=== PATIENT | female | born 1935 | race Caucasian/White ===

== ENCOUNTER 2016-12-25 21:25 | Emergency (ER) | payer MEDICARE, OTHER ==
[~2016-12-25] VITALS: Ht 152.4 cm; Wt 78.5 kg
[~2016-12-25 21:25] MED LIST: ACET325T9 PO; AMLO10TA2 PO; AMLO1CAP12 PO; ARIP5TAB13 PO; CA C1TAB28 PO; CALC600T4 PO; CHOL10003 PO; CIPR250T30 PO; DULO60CA44 PO; EZET10TA18 PO; GABA-585 PO; GLYB5TAB3 PO; HYDR-2762 PO; LEXAPRO10 MG PO; LIDO700A4 TP; LISI10TA2 PO; MAGN400O7 PO; METO50TA2 PO; MIRT15TA PO; OLAN2.5T11 PO; OLAN5TAB7 PO; POTA20TA4 PO; SIMV40TA3 PO; VILA40TA PO; VITA1CAP PO; [UNRECOGNIZED DRUG - REMARK] PO
[2016-12-25] MEDS ORDERED: MORPHINE SULFATE 4 MG/ML DISP.SYRIN. IV ONE (23:00)
[2016-12-26 00:18] LABS: BASO % 0 % (0-3); EOS # 0.1 x10^3/uL (0.0-0.7); EOS % 2 % (0-3); HEMATOCRIT 34.9 % (36.0-47.0); HEMOGLOBIN 11.2 g/dL (12.0-15.5); LYMPH # 0.9 x10^3/uL (1.0-4.8); LYMPH % 14 % (24-48); MEAN CORPUSCULAR HEMOGLOBIN 31 pg (25-35); MEAN CORPUSCULAR HGB CONC 32 g/dL (31-37); MEAN CORPUSCULAR VOLUME 96 fL (79-100); MONO # 0.4 x10^3/uL (0.0-1.1); MONO % 6 % (0-9); NEUT # 5.2 x10^3uL (1.8-7.7); NEUT % 79 % (31-73); PLATELET COUNT 213 x10^3/uL (140-400); RED BLOOD COUNT 3.66 x10^6/uL (3.50-5.40); RED CELL DISTRIBUTION WIDTH 15.8 % (11.5-14.5); WHITE BLOOD COUNT 6.6 x10^3/uL (4.0-11.0)
[2016-12-26 00:20] LABS: CALCIUM 8.7 mg/dL (8.5-10.1); CREATININE 1.2 mg/dL (0.6-1.0); GFR 43.4
--- NOTE | 2016-12-26 00:45 | PHYS DOC ---
Past History Past Medical History: Dementia, Diabetes, High Cholesterol, Hypertension, Other Past Surgical History: Other Smoking: Non-smoker Alcohol Use: None Drug Use: None Adult General Chief Complaint Chief Complaint: MECHANICAL FALL HPI HPI Patient is a 80 year old F who presents trip and fall at home. After the fall she developed constant dull right hip pain that is worse with movement and improved with positioning. She also hit the left side of her head causing a small contusion. She denies loss of consciousness, headache, nausea or blurry vision. She denies any other symptoms associated with head injury. She has no other associated symptoms. Mily did receive 100 g of fentanyl given by EMS during transport just prior to arrival. Review of Systems Review of Systems Constitutional: Denies fever or chills [] Eyes: Denies change in visual acuity, redness, or eye pain [] HENT: Denies nasal congestion or sore throat [] Respiratory: Denies cough or shortness of breath [] Cardiovascular: No additional information not addressed in HPI [] GI: Denies abdominal pain, nausea, vomiting, bloody stools or diarrhea [] : Denies dysuria or hematuria [] Musculoskeletal: Negative except history of present illness Integument: Denies rash or skin lesions [] Neurologic: Denies headache, focal weakness or sensory changes [] Endocrine: Denies polyuria or polydipsia [] Family History Family History Noncontributory Current Medications Current Medications Current Medications Medications (Trade) Dose Ordered Sig/Cara Start Time Stop Time Status Last Admin Dose Admin Morphine Sulfate (Morphine 4mg Syringe) 4 mg 1X ONCE 12/25/16 23:00 12/25/16 23:01 DC 12/25/16 23:00 4 MG Allergies Allergies Allergies Coded Allergies Type Severity Reaction Last Updated Verified Sulfa (Sulfonamide Antibiotics) Allergy Intermediate 07/09/13 Yes Physical Exam Physical Exam Constitutional: Well developed, well nourished, no acute distress, non-toxic appearance. [] HENT: Normocephalic, bilateral external ears normal, oropharynx moist, no oral exudates, nose normal. [] Contusion over the left forehead Eyes: PERRLA, EOMI, conjunctiva normal, no discharge. [] Neck: Normal range of motion, no tenderness, supple, no stridor. [] Cardiovascular:Heart rate regular rhythm, Lungs & Thorax: Bilateral breath sounds clear to auscultation [] Abdomen: Bowel sounds normal, soft, no tenderness, no masses, no pulsatile masses. [] Skin: Warm, dry, no erythema, no rash. [] Back: No tenderness, no CVA tenderness. [] Extremities: no cyanosis, no edema. [] Right leg shortening with external rotation. Range of motion and strength testing were limited due to pain. Normal blood flow in the foot as well as the rest of the lower extremity. Normal sensation. Neurologic: Alert and oriented X 3, normal motor function, normal sensory function, no focal deficits noted. [] Psychologic: Affect normal, judgement normal, mood normal. [] Current Patient Data Vital Signs Vital Signs Date Time Temp Pulse Resp B/P (MAP) Pulse Ox O2 Delivery O2 Flow Rate FiO2 12/25/16 23:43 66 20 97/49 (65) 98 Nasal Cannula 3.0 12/25/16 21:43 97.7 Lab Results Laboratory Tests Test 12/25/16 21:30 White Blood Count 6.6 x10^3/uL (4.0-11.0) Red Blood Count 3.66 x10^6/uL (3.50-5.40) Hemoglobin 11.2 g/dL (12.0-15.5) L Hematocrit 34.9 % (36.0-47.0) L Mean Corpuscular Volume 96 fL (79-100) Mean Corpuscular Hemoglobin 31 pg (25-35) Mean Corpuscular Hemoglobin Concent 32 g/dL (31-37) Red Cell Distribution Width 15.8 % (11.5-14.5) H Platelet Count 213 x10^3/uL (140-400) Neutrophils (%) (Auto) 79 % (31-73) H Lymphocytes (%) (Auto) 14 % (24-48) L Monocytes (%) (Auto) 6 % (0-9) Eosinophils (%) (Auto) 2 % (0-3) Basophils (%) (Auto) 0 % (0-3) Neutrophils # (Auto) 5.2 x10^3uL (1.8-7.7) Lymphocytes # (Auto) 0.9 x10^3/uL (1.0-4.8) L Monocytes # (Auto) 0.4 x10^3/uL (0.0-1.1) Eosinophils # (Auto) 0.1 x10^3/uL (0.0-0.7) Basophils # (Auto) 0.0 x10^3/uL (0.0-0.2) Sodium Level 141 mmol/L (136-145) Potassium Level 4.0 mmol/L (3.5-5.1) Chloride Level 106 mmol/L (98-107) Carbon Dioxide Level 26 mmol/L (21-32) Anion Gap 9 (6-14) Blood Urea Nitrogen 21 mg/dL (7-20) H Creatinine 1.2 mg/dL (0.6-1.0) H Estimated GFR (Cockcroft-Gault) 43.4 Glucose Level 151 mg/dL (70-99) H Calcium Level 8.7 mg/dL (8.5-10.1) EKG EKG [] Radiology/Procedures Radiology/Procedures Right hip and pelvis Impressions: Right femur fracture with mild displacement Course & Med Decision Making Course & Med Decision Making Pertinent Labs and Imaging studies reviewed. (See chart for details) Orthopedics was contacted by phone and recommended transfer to [place] for further management. Hospitalist was contacted by phone and Mily's care was accepted. She was transferred in stable condition. Dragon Disclaimer Dragon Disclaimer This chart was dictated in whole or in part using Voice Recognition software in a busy, high-work load, and often noisy Emergency Department environment. It may contain unintended and wholly unrecognized errors or omissions. Departure Departure: Impression: Primary Impression: Closed right hip fracture Disposition: 05 XFER OTHER Condition: STABLE Referrals: BETH VEGA DO (PCP) Problem Qualifiers Primary Impression: Closed right hip fracture Encounter type: initial encounter Qualified Codes: S72.001A - Fracture of unspecified part of neck of right femur, initial encounter for closed fracture XIANG ALVAREZ MD Dec 26, 2016 00:45
[2016-12-26 01:11] VITALS: BP 94/46
[2016-12-26] MEDS ORDERED: MORPHINE SULFATE 4 MG/ML DISP.SYRIN. IV ONE (01:15)
[2016-12-26] MEDS ORDERED: IV NORMAL SALINE 1,000ML 1,000 ML IV ONE (01:15)
--- NOTE | 2016-12-26 08:14 | RAD ---
Examination: 2 views of the right hip with frontal view of the pelvis History: History of fall Comparison: None available Findings/impression: The bilateral femoral heads are within the scapula. Osseous demineralization limits evaluation. There is displaced comminuted fracture of the intertrochanteric region of the right femur with the fracture extending to involve the proximal femur. There is questionable slight step-off of the right superior pubic ramus at its junction with the acetabulum which could be due to position or subtle nondisplaced fracture.
== END 2016-12-26 01:21 | disposition short-term general hospital (02) ==
LOC: ER 21:25
DX: S72.001A Fracture of unspecified part of neck of right femur, initial encounter for closed fracture (principal); S00.83XA Contusion of other part of head, initial encounter; I10 Essential (primary) hypertension; F03.90 Unspecified dementia, unspecified severity, without behavioral disturbance, psychotic disturbance, mood disturbance, and anxiety; E78.00 Pure hypercholesterolemia, unspecified; E11.9 Type 2 diabetes mellitus without complications; Z88.2 Allergy status to sulfonamides; W01.0XXA Fall on same level from slipping, tripping and stumbling without subsequent striking against object, initial encounter; Y93.89 Activity, other specified; Y99.8 Other external cause status; Y92.008 Other place in unspecified non-institutional (private) residence as the place of occurrence of the external cause
CPT/HCPCS: 36415; 73502; 80048; 85025; 96374; 96376; 99285; J2270; J7030

== ENCOUNTER 2019-06-23 17:27 | Observation (INO) | payer MEDICARE, OTHER ==
[~2019-06-23] VITALS: Ht 157.5 cm; Wt 66.0 kg
[~2019-06-23 17:27] MED LIST changes: -AMLO10TA2 PO; +AMLO10TA8 PO; -AMLO1CAP12 PO; +AMLO1CAP13 PO; -DULO60CA44 PO; +DULO60CA98 PO; -EZET10TA18 PO; +EZET10TA20 PO; -HYDR-2762 PO; +HYDR-2765 PO; -METO50TA2 PO; +METO50TA6 PO; +SIMV40TA18 PO; -SIMV40TA3 PO
--- NOTE | 2019-06-23 17:54 | PHYS DOC ---
Past History Past Medical History: Dementia, Diabetes, High Cholesterol, Hypertension, Other (XIANG DAVIDSON DO) Past Medical History: COPD, Hypertension (JOE RUVALCABA DO) Past Surgical History: Other (XIANG DAVIDSON DO) Smoking: Non-smoker Alcohol Use: None Drug Use: None (XIANG DAVIDSON DO) General Adult EDM: Chief Complaint: CHEST PAIN HPI: HPI: Patient is a 89-year-old female who presented to ER today for evaluation of chest pain associated with nausea, vomiting, having trouble breathing for 4 days. Patient denies any cough or fever. Patient denies any abdominal pain, no headache. Patient denies any history of coronary disease, no history of diabetes. Patient has history of hypertension. Beside that she cannot tell much about her medical history. (XIANG DAVIDSON DO) Review of Systems: Review of Systems: Constitutional: Denies fever or chills Eyes: Denies change in visual acuity HENT: Denies nasal congestion or sore throat Respiratory: Denies cough or shortness of breath Cardiovascular: Positive for chest pain and shortness of air, GI: Denies abdominal pain, Positive for nausea, vomiting, NO bloody stools or diarrhea : Denies dysuria Musculoskeletal: Denies back pain or joint pain Integument: Denies rash Neurologic: Denies headache, focal weakness or sensory changes Endocrine: Denies polyuria or polydipsia Lymphatic: Denies swollen glands Psychiatric: Denies depression or anxiety (XIANG DAVIDSON DO) Heart Score: HEART Score for Chest Pain: HEART Score for Chest Pain Response (Comments) Value History Moderately Suspicious 1 ECG Nonspecific Repolarizatio 1 Age > 65 2 Risk Factors 1 or 2 Risk Factors 1 Troponin < Normal Limit 0 Total 5 Risk Factors: Risk Factors: DM, Current or recent (<one month) smoker, HTN, HLP, family history of CAD, obesity. Risk Scores: Score 0 - 3: 2.5% MACE over next 6 weeks - Discharge Home Score 4 - 6: 20.3% MACE over next 6 weeks - Admit for Clinical Observation Score 7 - 10: 72.7% MACE over next 6 weeks - Early Invasive Strategies (XIANG DAVIDSON DO) Allergies: Allergies: Allergies Coded Allergies Type Severity Reaction Last Updated Verified Sulfa (Sulfonamide Antibiotics) Allergy Intermediate 07/09/13 Yes (XIANG DAVIDSON DO) Physical Exam: PE: Constitutional: Well developed, well nourished, no acute distress, non-toxic appearance. [] HENT: Normocephalic, atraumatic, bilateral external ears normal, oropharynx moist, no oral exudates, nose normal. [] Eyes: PERRLA, EOMI, conjunctiva normal, no discharge. [] Neck: Normal range of motion, no tenderness, supple, no stridor. [] Cardiovascular:Heart rate regular rhythm, no murmur [] Lungs & Thorax: DECREASE AIR MOVEMENT IN ALL LUNG FIELD,TACHYPNIC, NO RESPIRATORY DISTRESS, NO EDEMA Abdomen: Bowel sounds normal, soft, no tenderness, no masses, no pulsatile masses. [] Skin: Warm, dry, no erythema, no rash. [] Back: No tenderness, no CVA tenderness. [] Extremities: No tenderness, no cyanosis, no clubbing, ROM intact, no edema. [] Neurologic: Alert and oriented X 3, normal motor function, normal sensory function, no focal deficits noted. [] Psychologic: Affect normal, judgement normal, mood normal. [] (XIANG DAVIDSON DO) EKG: EKG: EKG was done at 1735, heart rate of 69 bpm, sinus rhythm, no ST segment elevation. [] (XIANG DAVIDSON DO) EKG: EKG: Normal sinus rhythm, rate 90, leftward axis, not STEMI, LVH (JOE RUVALCABA DO) Radiology/Procedures: Radiology/Procedures: [] (XIANG DAVIDSON DO) Radiology/Procedures: [address] [address] IMAGING REPORT Signed [facility]: [id number] : 1935 LOCATION: ER AGE: 83 SEX: F EXAM STATUS: REG ER ORD. PHYSICIAN: XIANG DAVIDSON DO REASON: chest pain PROCEDURE: PORTABLE CHEST 1V Exam: Chest one view INDICATION: Chest pain TECHNIQUE: Frontal view of the chest Comparisons: 10/15/2013 FINDINGS: The cardiomediastinal silhouette and pulmonary vessels are within normal limits. The lung and pleural spaces are clear. IMPRESSION: No acute cardiopulmonary process. Electronically signed by: Tripp Vogel MD (06/23/2019 5:59 PM) [id number] DICTATED AND SIGNED BY: TRIPP VOGEL MD DATE: 06/23/191758 CC: BETH VEGA DO; XIANG DAVIDSON DO ~ (JOE RUVALCABA DO) Course & Med Decision Making: Course & Med Decision Making Pertinent Labs and Imaging studies reviewed. (See chart for details) Patient is an 83-year-old female who was evaluated in ER due to chest pain, trouble breathing, nausea and vomiting. Patient's care being transferred over to Dr. Ruvalcaba at shift change, pending lab work and x-ray. (XIANG DAVIDSON DO) Course & Med Decision Making 1800 Care of pt assumed by me at shift change 1829 patient reassessed. She has diminished but equal breath sounds bilaterally. I ordered a metered-dose inhaler treatment as well as dose of steroids. Patient has mild to moderate conversational dyspnea. Labs are unremarkable except for a low magnesium. CBC is essentially normal as is her troponin. Patient will need admission to the hospital. 1839 Dr. Penny is the admitting Hospitalist. Will admit with diagnosis of COPD exacerbation and chest pain (JOE RUVALCABA DO) Dragon Disclaimer: Dragon Disclaimer: This electronic medical record was generated, in whole or in part, using a voice recognition dictation system. (XIANG DAVIDSON DO) Departure Departure: Impression: Primary Impression: COPD with exacerbation Additional Impressions: Chest pain Dyspnea Disposition: ADMITTED INPATIENT Admitting Physician: eLnny Penny (JOE RUVALCABA DO) Condition: STABLE Referrals: BETH VEGA DO (PCP) XIANG DAVIDSON DO June 23, 2019 17:54 JOE RUVALCABA DO June 23, 2019 18:06
--- NOTE | 2019-06-23 18:02 | RAD ---
Exam: Chest one view INDICATION: Chest pain TECHNIQUE: Frontal view of the chest Comparisons: 10/15/2013 FINDINGS: The cardiomediastinal silhouette and pulmonary vessels are within normal limits. The lung and pleural spaces are clear. IMPRESSION: No acute cardiopulmonary process. Electronically signed by: Tripp Gomez MD (06/23/2019 5:59 PM) [id number]
[2019-06-23 18:10] LABS: BASO % 0 % (0-3); EOS % 1 % (0-3); HEMATOCRIT 41.6 % (36.0-47.0); HEMOGLOBIN 13.7 g/dL (12.0-15.5); LYMPH # 1.2 x10^3/uL (1.0-4.8); LYMPH % 24 % (24-48); MEAN CORPUSCULAR HEMOGLOBIN 31 pg (25-35); MEAN CORPUSCULAR HGB CONC 33 g/dL (31-37); MEAN CORPUSCULAR VOLUME 94 fL (79-100); MONO # 0.4 x10^3/uL (0.0-1.1); MONO % 9 % (0-9); NEUT # 3.4 x10^3uL (1.8-7.7); NEUT % 67 % (31-73); PLATELET COUNT 224 x10^3/uL (140-400); RED BLOOD COUNT 4.44 x10^6/uL (3.50-5.40); RED CELL DISTRIBUTION WIDTH 15.2 % (11.5-14.5); WHITE BLOOD COUNT 5.1 x10^3/uL (4.0-11.0)
[2019-06-23 18:19] LABS: CALCIUM 9.6 mg/dL (8.5-10.1); CREATININE 0.8 mg/dL (0.6-1.0); GFR 68.8
[2019-06-23 18:31] LABS: ALBUMIN/GLOBULIN RATIO 1.1 (1.0-1.7); TOTAL BILIRUBIN 0.6 mg/dL (0.2-1.0); TOTAL PROTEIN 7.5 g/dL (6.4-8.2)
[2019-06-23] MEDS ORDERED: ALBUTEROL SULFATE 8GM INHALER. INH ONE (18:45)
[2019-06-23] MEDS ORDERED: methylPREDNISolone SOD SUCC PF 125 MG/2 ML VIAL. IV ONE (18:45)
[2019-06-23] MEDS ORDERED: ONDANSETRON PF 4 MG/2 ML VIAL. IVP PRN (19:00)
--- NOTE | 2019-06-23 20:27 | PREOP HP ---
DATE OF SERVICE: ATTENDING PHYSICIAN: Dr. Tao CHIEF COMPLAINT: Shortness of breath. HISTORY OF PRESENT ILLNESS: The patient is a very pleasant 83-year-old female from a local [facility]. She was sent to the ED with increasing shortness of breath. She was actively wheezing. She received a nebulizer treatment. She has had symptoms now for 4 days. She denied any cough, headaches. She has no history of heart disease, but she does have hypertension and COPD. She has underlying dementia. Much of the history is obtained from the chart. In the ED, she responded well to supplemental oxygen and breathing treatment. Chest x-ray demonstrated no acute infiltrates. Lab work showed a normal white count of 5100, normal electrolytes. She is admitted then with an exacerbation of known COPD. PAST MEDICAL HISTORY: Significant for profound dementia, hyperlipidemia, type 2 diabetes, hypertension and COPD. ALLERGIES: She has allergies to SULFA DRUGS, exact cause is unclear. FAMILY HISTORY: Unobtainable. REVIEW OF SYSTEMS: Unobtainable due to the current mental condition. CURRENT MEDICINES: Her medications from the [facility] reviewed. She takes Neurontin 300 mg 3 times a day, Remeron, Viibryd, Abilify, Seroquel, calcium, potassium, Lidoderm patch, vitamin B complex, cholecalciferol and p.r.n. Tylenol. She is also taking lisinopril, amlodipine and metoprolol. PHYSICAL EXAMINATION: GENERAL: When I saw her, this is a very pleasant elderly female. She was dyspneic with minimal exertion. She denied any nausea or pain. INITIAL VITAL SIGNS: In the ED showed a blood pressure of 157/71, her pulse is 77 and regular, temperature 97.9, oxygen saturation 94% on 2 liters of supplemental oxygen. HEENT: Head is without trauma. Pupils are reactive. Sclerae nonicteric. The oropharynx is clear. NECK: Supple, no bruits identified. LUNGS: Good air sounds, very noticeable wheezing in the upper airways. She sounds tight. CARDIOVASCULAR: Showed regular heart tones. No gallops. Peripheral pulses are palpable and full. ABDOMEN: Soft, obese, protuberant. No organomegaly. EXTREMITIES: Showed no cyanosis or edema. NEUROLOGIC: Focally intact. Speech is fluent. She is pleasantly confused. PERTINENT LABORATORY STUDIES: The hemoglobin is 13.7 g/dL with a white count of 5100. Electrolytes within normal range with a creatinine of 0.8 mg/dL. Her troponin levels are nonischemic. Her chest x-ray showed a fairly good view. The lung majano are free of infiltrates. The heart size is upper limits of normal. ASSESSMENT: 1. An 83-year-old female, [facility] resident with an exacerbation of chronic obstructive pulmonary disease. 2. Essential hypertension. 3. Profound dementia. PLAN: 1. Admit to the inpatient unit. 2. I ordered scheduled nebulizers and steroid therapy. 3. Continue some home meds. 4. Diet as tolerated. She is a DNR per advanced directives. We will respect her wishes. TONYA TAO MD DR: JOAQUINA/antelmo JOB#: [id number] / [id number]
--- NOTE | 2019-06-23 20:30 | NUR ---
The patient, KATHY HICKS, 83 y/o, F admitted by TONYA TAO MD, was given written information regarding hospital policies, unit procedures and contact persons. Valuables were checked and logged. Patient is short of air, on oxygen. Shortness of breath at rest. Pt denies pain. WCTM.
[2019-06-23 20:49] VITALS: BP 176/71
[2019-06-23] MEDS ORDERED: ARIPiprazole 5 MG TABLET PO SCH (21:00)
[2019-06-23] MEDS ORDERED: MIRTAZAPINE 15 MG TABLET PO SCH (21:00)
[2019-06-23] MEDS ORDERED: METOPROLOL TART IMMED RELEASE 50 MG TABLET PO SCH (21:00)
[2019-06-23 21:09] LABS: BACTERIA,URINE FEW /HPF (0-FEW); BILIRUBIN,URINE NEG (NEG); CLARITY,URINE CLEAR; COLOR,URINE YELLOW; GLUCOSE,URINE NEG (NEG); NITRITE,URINE NEG (NEG); SQUAMOUS EPITHELIAL CELL,UR MOD /LPF
--- NOTE | 2019-06-23 21:12 | NUR ---
ATTEMPT TO CALL AND VERIFY MEDICATION LIST WITH [facility]. RECORDING STATING [facility] IS CLOSED. WILL HAVE TO CALL AND VERIFY IN AM.
[2019-06-23] MEDS ORDERED: CARB1TAB22 PO (21:46)
[2019-06-23] MEDS ORDERED: AMLO5TAB10 PO (21:46)
[2019-06-23] MEDS ORDERED: ATOR40TA59 PO (21:46)
[2019-06-23] MEDS ORDERED: CITA20TA6 PO (21:46)
[2019-06-23] MEDS ORDERED: ROPI0.5T4 PO (21:48)
--- NOTE | 2019-06-23 21:51 | NUR ---
Called Placed to Patient's Amparo Campbell/ daughter (general hardware salesperson). Home medication list received. Call to Dr. Penny, medications reviewed, orders received for some home medications per Dr. Penny's orders.
[2019-06-23] MEDS ORDERED: ATORVASTATIN CALCIUM 20 MG TABLET PO SCH (22:30)
[2019-06-23 22:54] VITALS: BP 159/61
[2019-06-24 05:32] VITALS: BP 158/67
[2019-06-24] MEDS ORDERED: amLODIPine BESYLATE 10 MG TABLET PO SCH (09:00)
[2019-06-24] MEDS ORDERED: CARBIDOPA/LEVODOPA 25/100MG TABLET PO SCH (09:00)
[2019-06-24] MEDS ORDERED: rOPINIRole 0.5 MG TABLET. PO SCH (09:00)
[2019-06-24] MEDS ORDERED: VITAMIN B COMPLEX CAPSULE. PO SCH (09:00)
[2019-06-24] MEDS ORDERED: LISINOPRIL 10 MG TABLET PO SCH (09:00)
[2019-06-24] MEDS ORDERED: POTASSIUM CHLORIDE 20 MEQ TABLET.ER. PO SCH (09:00)
[2019-06-24] MEDS ORDERED: methylPREDNISolone SOD SUCC PF 40 MG/ML VIAL. IV SCH (09:00)
[2019-06-24] MEDS ORDERED: CITALOPRAM 20 MG TABLET. PO SCH (09:00)
--- NOTE | 2019-06-24 09:39 | PN ---
DATE: 06/24/2019 ATTENDING PHYSICIAN: Tonya Tao MD SUBJECTIVE: She has a nonspecific headache. Her breathing appears better. She was appropriate to answer questions. OBJECTIVE FINDINGS: VITAL SIGNS: Her temperature is 98.3 degrees Fahrenheit, her blood pressure is 158/67, pulse 73 and regular, oxygen saturation 97% on 2 liters nasal cannula. HEENT: Head is without trauma. Pupils are reactive. Sclerae are nonicteric. Oropharynx clear. NECK: Supple. LUNGS: Minimal wheezing in the upper airways. CARDIOVASCULAR: Showed distant heart tones. No gallops. She has multiple trigger points along her spinous muscles on her neck and back. ABDOMEN: Soft. EXTREMITIES: Without cyanosis or edema. NEUROLOGIC: Findings focally intact. Speech is fluent. Mildly confused. LABORATORY DATA: Chest x-ray yesterday showed no acute infiltrates. ASSESSMENT: 1. An 83-year-old female with exacerbation of chronic obstructive pulmonary disease. 2. Essential hypertension. 3. Profound dementia. 4. Musculoskeletal tension headache. 5. Oxygen dependency. PLAN: 1. I will try to wean her off of supplemental oxygen and see what her room air saturations are at. 2. Continue steroid. 3. Continue nebulizer. 4. I am trying to contact her daughter and the power of disability attorney. Hopefully, discharge back to the shelter [facility]. TONYA TAO MD DR: JOAQUINA/antelmo JOB#: [id number] / [id number]
[2019-06-24 11:45] VITALS: BP 158/70
--- NOTE | 2019-06-24 11:50 | EKG ---
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
--- NOTE | 2019-06-24 14:08 | NUR ---
Patient is discharged home with daughter. Patient is given a prescription for prednisone 20mg TID, and a wheelchair. IV is D/C'd. Patient has all belongings with self at time of D/C. Patient is W/C'd off of unit accompanied by staff.
== END 2019-06-24 14:36 | disposition home or self-care (01) ==
LOC: ER 17:27 → 1 SOUTH 18:45
PROVIDERS: ADMIT Hospitalist; ATTEND Hospitalist
DX: J44.1 Chronic obstructive pulmonary disease with (acute) exacerbation (principal); I10 Essential (primary) hypertension; F03.90 Unspecified dementia, unspecified severity, without behavioral disturbance, psychotic disturbance, mood disturbance, and anxiety; E78.5 Hyperlipidemia, unspecified; E11.9 Type 2 diabetes mellitus without complications; E78.00 Pure hypercholesterolemia, unspecified; Z79.899 Other long term (current) drug therapy
CPT/HCPCS: 36415; 71045; 80053; 81001; 82947; 83690; 83735; 83880; 84484; 85025; 85610; 85730; 93005; 96374; 96375; 96376; 99285; G0378; J2405; J2920; J2930; J7613; G0379

== ENCOUNTER 2019-07-05 11:45 | Inpatient (IN) | payer MEDICARE, OTHER ==
[2019-07-05] VITALS (10 sets, daily range): BP systolic 106–128; BP diastolic 62–93
[~2019-07-05] VITALS: Ht 152.4 cm; Wt 68.1 kg
[~2019-07-05 11:45] MED LIST changes: +AMLO5TAB10 PO; +ATOR40TA59 PO; +CARB1TAB22 PO; +CITA20TA6 PO; +ROPI0.5T4 PO
[2019-07-05] MEDS ORDERED: FUROSEMIDE 40 MG/4 ML VIAL IVP ONE ×2 (12:20→16:50)
[2019-07-05] MEDS ORDERED: ASPIRIN CHEWABLE 81 MG TABLET. PO ONE (12:20)
[2019-07-05] MEDS ORDERED: dilTIAZem 25 MG/5 ML VIAL IVP ONE ×2 (12:22→13:15)
--- NOTE | 2019-07-05 12:28 | PHYS DOC ---
Past History Past Medical History: COPD, Dementia, Hypertension Past Surgical History: Other Smoking: Non-smoker Alcohol Use: None Drug Use: None General Adult EDM: Chief Complaint: SHORTNESS OF BREATH HPI: HPI: Patient is an 83-year-old female who presents to the emergency department for evaluation of shortness of breath. She was hospitalized here briefly earlier this month, history and physical and one progress note were reviewed, but unfortunately no discharge summary is available at this time. The patient's daughter, whom I spoke with by phone, as the patient is somewhat of a limited historian, states that the patient has had increasing and persistent shortness of breath over the past several days. The patient herself denies any pain, she has not been febrile, although reportedly she tried to go see her PCP today and was told that she had a temperature of 101, the patient is not exhibiting a fever upon arrival to the emergency department. She has not had any significant cough. She denies any chest pain. She is noted to be in rapid atrial fibrillation, but does not have a history of such, according to the patient or her daughter, as well as according to her most recent EKG. There are no known alleviating or exacerbating factors to the patient's symptoms. Review of Systems: Review of Systems: Constitutional: Denies fever or chills Eyes: Denies change in visual acuity HENT: Denies nasal congestion or sore throat Respiratory: Denies cough. Reports shortness of breath Cardiovascular: Denies chest pain or edema GI: Denies abdominal pain, nausea, vomiting, bloody stools or diarrhea : Denies dysuria Musculoskeletal: Denies back pain or joint pain Integument: Denies rash Neurologic: Denies headache, focal weakness or sensory changes Endocrine: Denies polyuria or polydipsia Lymphatic: Denies swollen glands Psychiatric: Denies depression or anxiety Heart Score: Risk Factors: Risk Factors: DM, Current or recent (<one month) smoker, HTN, HLP, family hist ory of CAD, obesity. Risk Scores: Score 0 - 3: 2.5% MACE over next 6 weeks - Discharge Home Score 4 - 6: 20.3% MACE over next 6 weeks - Admit for Clinical Observation Score 7 - 10: 72.7% MACE over next 6 weeks - Early Invasive Strategies Current Medications: Current Meds: Current Medications Medications (Trade) Dose Ordered Sig/Cara Start Time Stop Time Status Last Admin Dose Admin Aspirin (Aspirin Chewable) 324 mg 1X ONCE 07/05/19 12:20 07/05/19 12:21 DC Diltiazem HCl (Cardizem Iv Push) 10 mg 1X ONCE 07/05/19 12:22 07/05/19 12:23 DC Diltiazem HCl 125 mg/Sodium Chloride 125 ml @ 5 mls/hr CONT PRN 07/05/19 12:25 Furosemide (Lasix) 20 mg 1X ONCE 07/05/19 12:20 07/05/19 12:21 DC Sodium Chloride 1,000 ml @ 40 mls/hr 1X ONCE 07/05/19 12:30 07/06/19 13:29 UNV Allergies: Allergies: Allergies Coded Allergies Type Severity Reaction Last Updated Verified Sulfa (Sulfonamide Antibiotics) Allergy Intermediate 07/05/19 Yes Physical Exam: PE: PHYSICAL EXAM: CONSTITUTIONAL: Well developed, well nourished HEAD: normocephalic, atraumatic EENT: PERRL, EOMI. Conjunctivae normal color, sclerae non-icteric; moist mucous membranes. NECK: Supple, non-tender; no meningismus. LUNGS: There are crackles in the bases bilaterally, breathing even and unlabored. Normal air movement. HEART: Irregularly irregular, rapid rhythm, no murmur CHEST: No deformity; non-tender ABDOMEN: The abdomen is soft, and non-tender, no masses or bruits. EXTREM: Normal ROM; no deformity, no calf tenderness. Normal pulses palpable in all extremities. There is no pedal edema. SKIN: No rash; no diaphoresis NEURO: Alert; normal speech and cognition; CN's grossly intact; strength grossly intact without focal deficit. BACK: No CVA TTP. Current Patient Data: Labs: Laboratory Tests Test 07/05/19 12:13 White Blood Count 9.3 x10^3/uL Red Blood Count 4.30 x10^6/uL Hemoglobin 13.2 g/dL Hematocrit 40.9 % Mean Corpuscular Volume 95 fL Mean Corpuscular Hemoglobin 31 pg Mean Corpuscular Hemoglobin Concent 32 g/dL Red Cell Distribution Width 15.3 % Platelet Count 196 x10^3/uL Neutrophils (%) (Auto) 83 % Lymphocytes (%) (Auto) 9 % Monocytes (%) (Auto) 8 % Eosinophils (%) (Auto) 1 % Basophils (%) (Auto) 0 % Neutrophils # (Auto) 7.7 x10^3uL Lymphocytes # (Auto) 0.8 x10^3/uL Monocytes # (Auto) 0.7 x10^3/uL Eosinophils # (Auto) 0.1 x10^3/uL Basophils # (Auto) 0.0 x10^3/uL Prothrombin Time 10.0 SEC Prothromb Time International Ratio 1.0 Activated Partial Thromboplast Time 23 SEC Sodium Level 139 mmol/L Potassium Level 3.6 mmol/L Chloride Level 103 mmol/L Carbon Dioxide Level 27 mmol/L Anion Gap 9 Blood Urea Nitrogen 23 mg/dL Creatinine 1.2 mg/dL Estimated GFR (Cockcroft-Gault) 43.1 BUN/Creatinine Ratio 19 Glucose Level 178 mg/dL Lactic Acid Level 2.0 mmol/L Calcium Level 8.6 mg/dL Magnesium Level 1.9 mg/dL Total Bilirubin 0.5 mg/dL Aspartate Amino Transf (AST/SGOT) 10 U/L Alanine Aminotransferase (ALT/SGPT) 9 U/L Alkaline Phosphatase 95 U/L Troponin I Quantitative < 0.017 ng/mL AT-Rer-O-Type Natriuretic Peptide 4258 pg/mL Total Protein 6.9 g/dL Albumin 3.1 g/dL Albumin/Globulin Ratio 0.8 Current Medications Medications (Trade) Dose Ordered Sig/Cara Route PRN Reason Start Time Stop Time Status Last Admin Dose Admin Diltiazem HCl 125 mg/Sodium Chloride 125 ml @ 5 mls/hr CONT PRN IV SEE I/O RECORD 07/05/19 12:25 07/05/19 12:42 Diltiazem HCl (Cardizem Iv Push) 10 mg 1X ONCE IVP 07/05/19 12:22 07/05/19 12:23 DC 07/05/19 12:32 Furosemide (Lasix) 20 mg 1X ONCE IVP 07/05/19 12:20 07/05/19 12:21 DC 07/05/19 12:37 Aspirin (Aspirin Chewable) 324 mg 1X ONCE PO 07/05/19 12:20 07/05/19 12:21 DC 07/05/19 12:30 Sodium Chloride 1,000 ml @ 40 mls/hr 1X ONCE IV 07/05/19 12:35 07/06/19 13:34 07/05/19 12:34 EKG: EKG: Rapid atrial fibrillation at a rate of 168 bpm, left axis deviation, normal intervals, nonspecific ST/T changes, left axis deviation and likely left anterior fascicular block are present on the patient's prior EKG, rapid atrial fibrillation appears new. [] Radiology/Procedures: Radiology/Procedures: PROCEDURE: PORTABLE CHEST 1V PORTABLE CHEST 1V History: Shortness of breath Comparison: June 23, 2019 Findings: No consolidation or pleural effusion. Normal heart size. No pneumothorax. Deformity of the right proximal humerus, unchanged. Impression: 1. No acute cardiopulmonary process.[] Course & Med Decision Making: Course & Med Decision Making Pertinent Labs and Imaging studies reviewed. (See chart for details) [] 1:45 PM: The patient's condition remains stable. Her heart rate has been decreased into the 120s to 140s, up from the 160s to 170s upon arrival. She is feeling somewhat better at this time. Her Cardizem will continue to be titrated. I discussed the case with the hospitalist will admit the patient to the ICU for further treatment. CRITICAL CARE TIME: 45 Minutes, excluding any procedures and care of other patients. Dragon Disclaimer: Dragon Disclaimer: This electronic medical record was generated, in whole or in part, using a voice recognition dictation system. Departure Departure: Impression: Primary Impression: Atrial fibrillation with rapid ventricular response Additional Impression: Congestive heart failure Disposition: ADMITTED INPATIENT Admitting Physician: Lenny Penny Condition: STABLE Referrals: HERRERA COX MD (PCP) JERROD KUNZ MD July 05, 2019 12:28
[2019-07-05 12:34] LABS: BASO % 0 % (0-3); EOS # 0.1 x10^3/uL (0.0-0.7); EOS % 1 % (0-3); HEMATOCRIT 40.9 % (36.0-47.0); HEMOGLOBIN 13.2 g/dL (12.0-15.5); LYMPH # 0.8 x10^3/uL (1.0-4.8); LYMPH % 9 % (24-48); MEAN CORPUSCULAR HEMOGLOBIN 31 pg (25-35); MEAN CORPUSCULAR HGB CONC 32 g/dL (31-37); MEAN CORPUSCULAR VOLUME 95 fL (79-100); MONO # 0.7 x10^3/uL (0.0-1.1); MONO % 8 % (0-9); NEUT # 7.7 x10^3uL (1.8-7.7); NEUT % 83 % (31-73); PLATELET COUNT 196 x10^3/uL (140-400); RED CELL DISTRIBUTION WIDTH 15.3 % (11.5-14.5); WHITE BLOOD COUNT 9.3 x10^3/uL (4.0-11.0)
[2019-07-05] MEDS ORDERED: IV NORMAL SALINE 1,000ML 1,000 ML IV ONE (12:35)
[2019-07-05] MEDS: dilTIAZem VIAL 125 MG in IV NORMAL SALINE 100ML 100 ML IV PRN (12:42)
[2019-07-05 12:46] LABS: CALCIUM 8.6 mg/dL (8.5-10.1); CREATININE 1.2 mg/dL (0.6-1.0); GFR 43.1; POTASSIUM 3.6 mmol/L (3.5-5.1)
[2019-07-05 12:59] LABS: ALBUMIN 3.1 g/dL (3.4-5.0); ALBUMIN/GLOBULIN RATIO 0.8 (1.0-1.7); MAGNESIUM 1.9 mg/dL (1.8-2.4); TOTAL BILIRUBIN 0.5 mg/dL (0.2-1.0); TOTAL PROTEIN 6.9 g/dL (6.4-8.2)
--- NOTE | 2019-07-05 13:40 | RAD ---
PORTABLE CHEST 1V History: Shortness of breath Comparison: June 23, 2019 Findings: No consolidation or pleural effusion. Normal heart size. No pneumothorax. Deformity of the right proximal humerus, unchanged. Impression: 1. No acute cardiopulmonary process. Electronically signed by: Xander Menard DO (07/05/2019 1:37 PM) [id number]
--- NOTE | 2019-07-05 16:06 | HP ---
ADMIT DATE: 07/05/2019 ATTENDING PHYSICIAN: Dr. Tao. CHIEF COMPLAINT: Shortness of breath. HISTORY OF PRESENT ILLNESS: The patient is pleasant 83-year-old female well known to me from an admission 12 days ago. She was admitted at that time with an exacerbation of COPD. No febrile illness. No infectious causes. She was sent home the next morning. Today, she comes in with increasing shortness of breath. She was dropped off by her daughter. She is a very pleasantly demented, but has no insight into any of her condition. In the ED, she was found to be in atrial fibrillation with rapid ventricular rate of 168 per minute. Cardizem drip was administered. By the time I saw her, her ventricular rate was down to 120 per minute. She could not give me any further history. She used to be a smoker in the past. She has a significant profound dementia based on the last admit. Her blood pressure was adequate. There is no evidence of pneumonia. The chest x-ray showed cardiomegaly with vascular congestion and some pleural effusion. She is admitted then with rapid atrial fibrillation related to increased pressure on the left atrium. PAST MEDICAL HISTORY: Significant for essential hypertension, COPD, profound dementia, hyperlipidemia, diet-controlled diabetes. ALLERGIES: She has allergies to SULFA DRUGS exact cause and etiology is unclear. FAMILY HISTORY: Unobtainable. REVIEW OF SYSTEMS: Significant for the shortness of breath. No recent fevers, chills. The other review is unobtainable due to the patient's condition. Her medicines from the last admission included amlodipine, Lipitor, aspirin. PHYSICAL EXAMINATION: GENERAL: When I saw her, this is a very pleasant, confused female. INITIAL VITAL SIGNS: In the ED showed a blood pressure of 138/64, her pulse is 128 per minute, irregularly irregular. She was afebrile and her room air saturations were 94%. HEENT: Head is without trauma. The pupils are reactive. Sclerae is nonicteric. Oropharynx is clear without lesions. NECK: Supple, no bruits identified. LUNGS: Diffuse wheezing in upper airways. Minimal rhonchi at the bases. CARDIOVASCULAR: Showed irregularly irregular heart tones, tachycardic rhythm, rate about 130 per minute. Peripheral pulses are palpable and full. ABDOMEN: Soft, scaphoid, nontender, no organomegaly. Bowel sounds were hypoactive. EXTREMITIES: Show trace edema. NEUROLOGIC: Focally intact. Speech is fluent. The patient is not aware of situation. She is pleasantly confused. SKIN: Warm and dry without any lesions. PERTINENT LABORATORY STUDIES: Her hemoglobin was maintained at 13.2 g/dL with white count of 9300. Electrolytes are within normal range. BUN is 23 mg/dL with a creatinine of 1.2 mg/dL, nonfasting blood sugar 178. Her BNP is elevated at 4258. Transaminases were normal and her first set of cardiac enzymes showed no myocardial ischemia. Chest x-ray is noted. ECG is noted. ASSESSMENT: 1. This 83-year-old female who has symptomatic atrial fibrillation with rapid ventricular rate. 2. Underlying chronic obstructive pulmonary disease, advanced. 3. Profound dementia. 4. Essential hypertension. PLAN: 1. Admit to the Intensive Care Unit. 2. Continue Cardizem drip. 3. I shall increase the oral dosage to block impulse through the atrioventricular node. 4. Diabetic diet as tolerated. 5. She would probably benefit with an echocardiogram. In the last admission, her code status was DNR. We will respect her wishes. TONYA TAO MD DR: JOAQUINA/antelmo JOB#: [id number] / [id number]
[2019-07-05 16:20] LABS: BILIRUBIN,URINE NEG (NEG); CLARITY,URINE CLEAR; COLOR,URINE YELLOW; GLUCOSE,URINE NEG (NEG)
[2019-07-05 16:21] LABS: BACTERIA,URINE FEW /HPF (0-FEW); HYALINE CASTS, URINE FEW /HPF; NITRITE,URINE NEG (NEG); RBC,URINE OCC /HPF (0-2); SQUAMOUS EPITHELIAL CELL,UR FEW /LPF; UROBILINOGEN,URINE 0.2 mg/dL (0.2 mg/dL)
[2019-07-05] MEDS ORDERED: POTASSIUM CHLORIDE 20 MEQ TABLET.ER. PO ONE ×2 (16:50→21:00)
--- NOTE | 2019-07-05 16:50 | NUR ---
Pt admitted per ED no Cardizem gtt at 20 mg/hr. Dr in ED said ok to run over max rate of 15mg. Dr Mcgregor called and said pt was to be seen in office but her temp was 101.5 in the office and pt was sent to ED. She recommended testing pt for covid. PT is partially able to verbalize understanding of admission. PT has dementia and is poor historian and cannot hear very well. Pt is dyspnic on arrival to unit and HR [address] Penny was in ICU on pt arrival to UNIT. DR Penny ordered po Cardizem and stated "if pt not better by am then we can consult cardiology". He did order echo. PT O2 91% pt placed on 2 L NC. Daughter reports pt lives with her and the daughter works at convenience store. Daughter just became DPOA and is unsure of all of pt medical history at this time. She does not know if she has a history of AFIB. PT is not currently on blood thinners that she is aware of. Pt resting at this time. Dr Penny did not initially want to Swab her for Covid. After DR Mcgregor called with hesitation he agreed to swab. Thanks Lynn FERNANDES
[2019-07-05] MEDS ORDERED: LABETALOL 20 MG/4 ML DISP.SYRIN. IVP PRN (18:45)
[2019-07-05] MEDS ORDERED: CARB1TAB44 PO (19:07)
[2019-07-06] VITALS (22 sets, daily range): BP systolic 112–161; BP diastolic 49–96
[2019-07-06] MEDS: dilTIAZem VIAL 125 MG in IV NORMAL SALINE 100ML 100 ML IV PRN (02:20)
--- NOTE | 2019-07-06 06:23 | NUR ---
Shift Note: Pt is a/o to self and place (forgetful), VSS with Cardizem running at 20mls/hr and Oxygen at 2 Liters/NC, Tobin catheter to dependent drainage (975 out this shift). Pt has no c/o pain or n/v at this time. Attempted to turn cardizem down but pt's HR elevated after less than 30 minutes. Pt continues to c/o of SOA at rest although O2 sats >92% on 2 liters.
[2019-07-06 06:29] LABS: BASO % 0 % (0-3); EOS # 0.1 x10^3/uL (0.0-0.7); EOS % 1 % (0-3); HEMOGLOBIN 12.9 g/dL (12.0-15.5); LYMPH # 1.3 x10^3/uL (1.0-4.8); LYMPH % 14 % (24-48); MEAN CORPUSCULAR HEMOGLOBIN 31 pg (25-35); MEAN CORPUSCULAR HGB CONC 32 g/dL (31-37); MEAN CORPUSCULAR VOLUME 95 fL (79-100); MONO # 0.9 x10^3/uL (0.0-1.1); MONO % 9 % (0-9); NEUT # 7.2 x10^3uL (1.8-7.7); NEUT % 75 % (31-73); PLATELET COUNT 204 x10^3/uL (140-400); RED BLOOD COUNT 4.21 x10^6/uL (3.50-5.40); RED CELL DISTRIBUTION WIDTH 15.4 % (11.5-14.5); WHITE BLOOD COUNT 9.6 x10^3/uL (4.0-11.0)
[2019-07-06 06:41] LABS: ALBUMIN 3.1 g/dL (3.4-5.0); ALBUMIN/GLOBULIN RATIO 0.8 (1.0-1.7); CALCIUM 8.5 mg/dL (8.5-10.1); CREATININE 1.2 mg/dL (0.6-1.0); GFR 43.1; MAGNESIUM 1.8 mg/dL (1.8-2.4); POTASSIUM 4.2 mmol/L (3.5-5.1); TOTAL BILIRUBIN 0.8 mg/dL (0.2-1.0); TOTAL PROTEIN 6.9 g/dL (6.4-8.2)
[2019-07-06] MEDS: CARBIDOPA/LEVODOPA 25/100MG TABLET PO SCH (08:11)
[2019-07-06] MEDS: CITALOPRAM 20 MG TABLET. PO SCH (08:12)
[2019-07-06] MEDS: rOPINIRole 0.5 MG TABLET. PO SCH (08:12)
--- NOTE | 2019-07-06 08:35 | NUR ---
DR TAO INSTRUCT TO GIVE PO CARDIZEM NOW AND TITRATE OFF CARDIZEM GTT.
[2019-07-06] MEDS ORDERED: amLODIPine BESYLATE 5 MG TABLET PO SCH ×2 (09:00)
[2019-07-06] MEDS ORDERED: METOPROLOL TART IMMED RELEASE 25 MG TABLET PO SCH (09:00)
--- NOTE | 2019-07-06 09:13 | EKG ---
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
--- NOTE | 2019-07-06 09:35 | PDOC2 ---
CARDIAC CONSULT DATE OF CONSULT Date Of Consult DATE: 07/06/19 TIME: 09:20 REASON FOR CONSULT Reason for Consult AFIB with RVR REFERRING PHYSICIAN Referring Physician Dr. Penny SOURCE Source: Chart review HPI History of Present Illness This is a 83 yo female who presented secondary to shortness of breath. Was reportedly febrile at home. Has been increasingly short of breath for the last 2 days. Was noted in AFIB with RVR, which prompted this consult. No prior known h/o AFIB. Was started on Cardizem gtt. She denies any chest pain, palpitations, dizziness, diaphoresis, or nausea/vomiting. Continues to be short of breath. PAST MEDICAL HISTORY Cardiovascular: CHF, HTN, hyperipidemia Pulmonary: COPD CENTRAL NERVOUS SYSTEM: Dementia Psych: Depression Endocrine: Diabetes, Hypothyroidism PAST SURGICAL HISTORY Past Surgical History: No pertinent history FAMILY HISTORY Family History: Stroke SOCIAL HISTORY Smoke: Quit ALCOHOL: none Drugs: None Lives: with Family CURRENT MEDICATIONS Current Medications Current Medications Diltiazem HCl 125 mg/Sodium Chloride 125 ml @ 5 mls/hr CONT PRN IV SEE I/O RECORD Last administered on 07/06/19at 02:20; Start 07/05/19 at 12:25 Diltiazem HCl (Cardizem Iv Push) 10 mg 1X ONCE IVP Last administered on 07/05/19at 12:32; Start 07/05/19 at 12:22; Stop 07/05/19 at 12:23; Status DC Furosemide (Lasix) 20 mg 1X ONCE IVP Last administered on 07/05/19at 12:37; Start 07/05/19 at 12:20; Stop 07/05/19 at 12:21; Status DC Aspirin (Aspirin Chewable) 324 mg 1X ONCE PO Last administered on 07/05/19at 12:30; Start 07/05/19 at 12:20; Stop 07/05/19 at 12:21; Status DC Sodium Chloride 1,000 ml @ 40 mls/hr 1X ONCE IV Last administered on 07/05/19at 12:34; Start 07/05/19 at 12:35; Stop 07/05/19 at 16:42; Status DC Diltiazem HCl (Cardizem Iv Push) 10 mg 1X ONCE IVP Last administered on 07/05/19at 13:10; Start 07/05/19 at 13:15; Stop 07/05/19 at 13:24; Status DC Amlodipine Besylate (Norvasc) 25 mg DAILY PO ; Start 07/06/19 at 09:00; Stop 07/05/19 at 16:42; Status DC Carbidopa/Levodopa (Sinemet 25/100) 2 tab DAILY PO Last administered on 07/06/19at 08:11; Start 07/06/19 at 09:00 Citalopram Hydrobromide (CeleXA) 20 mg DAILY PO Last administered on 07/06/19at 08:12; Start 07/06/19 at 09:00 Ropinirole HCl (Requip) 0.5 mg DAILY PO Last administered on 07/06/19at 08:12; Start 07/06/19 at 09:00 Diltiazem HCl (Cardizem 24hr Cd) 240 mg 1X PO Last administered on 07/05/19at 15:06; Start 07/05/19 at 15:15; Stop 07/06/19 at 08:56; Status DC Furosemide (Lasix) 80 mg 1X ONCE IVP Last administered on 07/05/19at 17:02; Start 07/05/19 at 16:50; Stop 07/05/19 at 16:51; Status DC Potassium Chloride (Klor-Con) 40 meq 1X ONCE PO Last administered on 07/05/19at 17:01; Start 07/05/19 at 16:50; Stop 07/05/19 at 16:51; Status DC Potassium Chloride (Klor-Con) 40 meq 1X ONCE PO Last administered on 07/05/19at 20:46; Start 07/05/19 at 21:00; Stop 07/05/19 at 21:01; Status DC Amlodipine Besylate (Norvasc) 5 mg DAILY PO Last administered on 07/06/19at 08:15; Start 07/06/19 at 09:00 Labetalol HCl (Normodyne) 10 mg PRN Q1HR PRN IVP ACCL HEART RATE; Start 07/05/19 at 18:45 Albuterol Sulfate (Ventolin Hfa Inhaler) 1 puff PRN QID PRN INH SHORTNESS OF AIR; Start 07/05/19 at 18:45 Diltiazem HCl (Cardizem 24hr Cd) 240 mg DAILY PO Last administered on 07/06/19at 08:34; Start 07/06/19 at 09:00 Metoprolol Tartrate (Lopressor) 25 mg BID PO ; Start 07/06/19 at 09:00 Diltiazem HCl (Cardizem 24hr Cd) 240 mg 1X ONCE PO ; Start 07/06/19 at 09:00; Stop 07/06/19 at 09:01; Status DC Active Scripts Active Reported Carbidopa-Levo Er 50-200 Tab (Carbidopa/Levodopa) 1 Each Tablet.er 1 Tab PO BID Ropinirole Hcl 0.5 Mg Tablet 0.5 Mg PO DAILY Amlodipine Besylate 5 Mg Tablet 1 Tab PO DAILY Citalopram Hbr (Citalopram Hydrobromide) 20 Mg Tablet 20 Mg PO DAILY ALLERGIES Allergies: Coded Allergies: Sulfa (Sulfonamide Antibiotics) (Verified Allergy, Intermediate, 07/05/19) "Can't remember" ROS Review of Systems 14 point ROS conducted with pertinent positives noted above in HPI, although limited due to dementia PHYSICAL EXAM General: Alert, Cooperative, No acute distress, Other (orient to person and place only ) HEENT: Atraumatic, Mucous membr. moist/pink Lungs: Other (fine expiratory wheezes) Heart: Other (AFIB, rate 90) Abdomen: Soft, No tenderness Extremities: No edema, Normal pulses Skin: No rashes, No breakdown Neuro: Normal speech, Sensation intact Psych/Mental Status: Mood NL MUSCULOSKELETAL: Osteoarthritic changes both hands VITALS Vital Signs Vital Signs Date Time Temp Pulse Resp B/P (MAP) Pulse Ox O2 Delivery O2 Flow Rate FiO2 07/06/19 09:07 98.4 93 128/49 (75) 99 2.0 07/06/19 08:00 18 Nasal Cannula LABS LABS Laboratory Tests Test 07/05/19 12:13 07/05/19 15:43 07/06/19 06:00 White Blood Count 9.3 x10^3/uL (4.0-11.0) 9.6 x10^3/uL (4.0-11.0) Red Blood Count 4.30 x10^6/uL (3.50-5.40) 4.21 x10^6/uL (3.50-5.40) Hemoglobin 13.2 g/dL (12.0-15.5) 12.9 g/dL (12.0-15.5) Hematocrit 40.9 % (36.0-47.0) 40.0 % (36.0-47.0) Mean Corpuscular Volume 95 fL (79-100) 95 fL (79-100) Mean Corpuscular Hemoglobin 31 pg (25-35) 31 pg (25-35) Mean Corpuscular Hemoglobin Concent 32 g/dL (31-37) 32 g/dL (31-37) Red Cell Distribution Width 15.3 % (11.5-14.5) 15.4 % (11.5-14.5) Platelet Count 196 x10^3/uL (140-400) 204 x10^3/uL (140-400) Neutrophils (%) (Auto) 83 % (31-73) 75 % (31-73) Lymphocytes (%) (Auto) 9 % (24-48) 14 % (24-48) Monocytes (%) (Auto) 8 % (0-9) 9 % (0-9) Eosinophils (%) (Auto) 1 % (0-3) 1 % (0-3) Basophils (%) (Auto) 0 % (0-3) 0 % (0-3) Neutrophils # (Auto) 7.7 x10^3uL (1.8-7.7) 7.2 x10^3uL (1.8-7.7) Lymphocytes # (Auto) 0.8 x10^3/uL (1.0-4.8) 1.3 x10^3/uL (1.0-4.8) Monocytes # (Auto) 0.7 x10^3/uL (0.0-1.1) 0.9 x10^3/uL (0.0-1.1) Eosinophils # (Auto) 0.1 x10^3/uL (0.0-0.7) 0.1 x10^3/uL (0.0-0.7) Basophils # (Auto) 0.0 x10^3/uL (0.0-0.2) 0.0 x10^3/uL (0.0-0.2) Prothrombin Time 10.0 SEC (9.4-11.4) Prothromb Time International Ratio 1.0 (0.9-1.1) Activated Partial Thromboplast Time 23 SEC (23-33) Sodium Level 139 mmol/L (136-145) 138 mmol/L (136-145) Potassium Level 3.6 mmol/L (3.5-5.1) 4.2 mmol/L (3.5-5.1) Chloride Level 103 mmol/L (98-107) 103 mmol/L (98-107) Carbon Dioxide Level 27 mmol/L (21-32) 27 mmol/L (21-32) Anion Gap 9 (6-14) 8 (6-14) Blood Urea Nitrogen 23 mg/dL (7-20) 26 mg/dL (7-20) Creatinine 1.2 mg/dL (0.6-1.0) 1.2 mg/dL (0.6-1.0) Estimated GFR (Cockcroft-Gault) 43.1 43.1 BUN/Creatinine Ratio 19 (6-20) 22 (6-20) Glucose Level 178 mg/dL (70-99) 133 mg/dL (70-99) Lactic Acid Level 2.0 mmol/L (0.4-2.0) Calcium Level 8.6 mg/dL (8.5-10.1) 8.5 mg/dL (8.5-10.1) Magnesium Level 1.9 mg/dL (1.8-2.4) 1.8 mg/dL (1.8-2.4) Total Bilirubin 0.5 mg/dL (0.2-1.0) 0.8 mg/dL (0.2-1.0) Aspartate Amino Transf (AST/SGOT) 10 U/L (15-37) 11 U/L (15-37) Alanine Aminotransferase (ALT/SGPT) 9 U/L (14-59) 14 U/L (14-59) Alkaline Phosphatase 95 U/L (46-116) 94 U/L (46-116) Troponin I Quantitative < 0.017 ng/mL (0-0.055) KE-Qzs-S-Type Natriuretic Peptide 4258 pg/mL (0-449) Total Protein 6.9 g/dL (6.4-8.2) 6.9 g/dL (6.4-8.2) Albumin 3.1 g/dL (3.4-5.0) 3.1 g/dL (3.4-5.0) Albumin/Globulin Ratio 0.8 (1.0-1.7) 0.8 (1.0-1.7) Urine Collection Type Void Urine Color Yellow Urine Clarity Clear Urine pH 5.0 Urine Specific [place] 1.015 Urine Protein Neg (NEG-TRACE) Urine Glucose (UA) Neg mg/dL (NEG) Urine Ketones (Stick) Neg mg/dL (NEG) Urine Blood Neg (NEG) Urine Nitrite Neg (NEG) Urine Bilirubin Neg (NEG) Urine Urobilinogen Dipstick 0.2 mg/dL (0.2 mg/dL) Urine Leukocyte Esterase Neg (NEG) Urine RBC Occ /HPF (0-2) Urine WBC 1-4 /HPF (0-4) Urine Squamous Epithelial Cells Few /LPF Urine Bacteria Few /HPF (0-FEW) Urine Hyaline Casts Few /HPF Urine Mucus Mod /LPF ASSESSMENT/PLAN Assessment/Plan 1. Acute on chronic respiratory failure with AECOPD 2. AFIB with RVR; new finding. Rate now controlled on Cardizem gtt and s/p oral Cardizem 3. Mild acute on chronic probable diastolic CHF; s/p IV lasix 4. Hypertension; controlled 5. Hyperlipidemia 6. Dementia 7. Hypothyroidism Recommendations Agree with oral Cardizem for rate control. Titrate off Cardizem gtt. Discontinue Norvasc with addition of above Hold addition of metoprolol for now given COPD, wheezing TSH level Echo to assess LV systolic function if COVID negative Probable poor candidate for OAC given high fall risk Add ASA for stroke prophylaxis. Albuterol nebs Consider SoluMedrol; will defer to IM Supportive care KATHY EDWARDS APRN July 06, 2019 09:35
--- NOTE | 2019-07-06 09:48 | NUR ---
IP: patient is pending results for COVID-19, requires contact and airborne precautions.
[2019-07-06] MEDS: ALBUTEROL SULFATE 8GM INHALER. INH PRN (10:03)
[2019-07-06] MEDS: ASPIRIN ENTERIC COATED 81 MG TABLET.DR. PO SCH (10:03)
--- NOTE | 2019-07-06 11:00 | NUR ---
INSTRUCTED BY KATHY LARA TO HOLD METOPROLOL.
--- NOTE | 2019-07-06 11:15 | PN ---
DATE: 07/06/2019 SUBJECTIVE: Pleasantly confused. No new complaints. She is breathing better. She has very little insight. She does not appear to be in respiratory distress. OBJECTIVE FINDINGS: VITAL SIGNS: Her heart rate today is down to between 80 and 90 per minute. It is still irregularly irregular. Her temperature is 98.4 degrees Fahrenheit, blood pressure fluctuates between 125-161 mmHg. Her oxygen saturations are 99% with 2 liters nasal cannula. HEENT: Head is without trauma. The pupils are reactive. The sclerae are nonicteric. The oropharynx is clear. NECK: Supple, no bruits or stridor. LUNGS: Diminished breath sounds at the bases. CARDIOVASCULAR: Showed distant heart tones. Irregularly irregular rhythm. Normal S1. Variable S2. Peripheral pulses are palpable and full. ABDOMEN: Soft, scaphoid, nontender, no organomegaly. Bowel sounds were hypoactive. EXTREMITIES: Show no cyanosis or edema. NEUROLOGIC: Focally intact. Speech is fluent. Mentation is marginal. She is confused and not aware of what is going on. PERTINENT LABORATORY STUDIES: Repeat chemistry panel today, CBC showed a normal hemoglobin of 12.9 g/dL with white count of 9600. The creatinine is unchanged at 1.2 mg/dL, the nonfasting blood sugar is 133, potassium is 4.2 mEq. Transaminases are normal. An echocardiogram ordered yesterday is pending at this time, has not been done yet. ASSESSMENT: 1. An 83-year-old female with symptomatic paroxysmal atrial fibrillation with rapid ventricular rate. Ventricular rate has been controlled. 2. Underlying chronic obstructive pulmonary disease causing increased right sided pressures. 3. Profound dementia. 4. Essential hypertension. PLAN: 1. I will continue the Cardizem at an oral dose of 240 mg p.o. daily to block impulse through the A-V, atrioventricular node. 2. We added p.r.n. intravenous beta jaymie. We will substitute that with p.o. metoprolol 25 mg b.i.d. 3. Diet as tolerated. 4. Await results of echocardiogram. 5. I will put in a formal Cardiology consult. I have spoken with their services already. 6. She remains a DNR per advance directive. 7. Because of the daughter's insistence, I went ahead and swabbed her for COVID-19 coronavirus. Should that be negative, which I expect it to be, we can move her out of the ICU to the floor. TONYA TAO MD DR: JOAQUINA/antelmo JOB#: [id number] / [id number]
[2019-07-06] MEDS ORDERED: methylPREDNISolone SOD SUCC PF 125 MG/2 ML VIAL. IV ONE (15:15)
--- NOTE | 2019-07-06 15:22 | NUR ---
NOTICE PT'S WORK OF BREATHING INCREASING AND WHEN ASKED STAT THAT SHE FEEL LIKE SHE IS HAVING A BIT OF A HARD TIME BREATHING. CONTACT DR. TAO AND KATHY [employer] AND INSTRUCTED TO GET ABG, CXRY AND GIVE STEROID IV. WILL CONTINUE TO ASSESS.
[2019-07-06 15:55] LABS: BGAS PH 7.46 (7.35-7.45)
--- NOTE | 2019-07-06 16:06 | RAD ---
PORTABLE CHEST 1V History: Shortness of breath Comparison: July 05, 2019 Findings: Low lung volumes. No consolidation or pleural effusion. Unchanged heart size. No pneumothorax. Deformity of the right proximal humerus. Bilateral glenohumeral DJD. Impression: 1. No acute cardiopulmonary process. Electronically signed by: Xander Menard DO (07/06/2019 4:03 PM) [id number]
[2019-07-06] MEDS ORDERED: FUROSEMIDE 20 MG/2 ML VIAL IVP ONE (16:45)
[2019-07-06 16:51] LABS: THYROID STIM HORMONE (TSH) 0.022 uIU/mL (0.358-3.740)
[2019-07-06] MEDS: methylPREDNISolone SOD SUCC PF 40 MG/ML VIAL. IV SCH (19:46)
[2019-07-07] VITALS (20 sets, daily range): BP systolic 106–130; BP diastolic 51–70
--- NOTE | 2019-07-07 06:26 | NUR ---
Pt more confused at beginning of shift, got up from bed sounding alarm and pulled out IV from left hand. Pt believed she was "all alone in the house." Reoriented to hospital and situation. Able to assist x1 to BSC and pt had small BM. Pt then settled into bed and slept through much of the night. Pt took off NC frequently. Able to maintain O2 sats at mid-90's on RA this AM. Pt's rhythm has converted to SR with rate in the 60-70's.
[2019-07-07] MEDS: CITALOPRAM 20 MG TABLET. PO SCH (08:11)
[2019-07-07] MEDS: CARBIDOPA/LEVODOPA 25/100MG TABLET PO SCH (08:11)
[2019-07-07] MEDS: ASPIRIN ENTERIC COATED 81 MG TABLET.DR. PO SCH (08:11)
[2019-07-07] MEDS: rOPINIRole 0.5 MG TABLET. PO SCH (08:12)
[2019-07-07] MEDS: methylPREDNISolone SOD SUCC PF 40 MG/ML VIAL. IV SCH (08:12)
[2019-07-07] MEDS: ALBUTEROL SULFATE 8GM INHALER. INH PRN ×3 (08:12→19:21)
--- NOTE | 2019-07-07 08:13 | PN ---
DATE: 07/07/2019 CHIEF COMPLAINT: Shortness of breath. SUBJECTIVE: The patient is comfortable. She remains pleasantly confused. She had converted to sinus rhythm last night. She is off the Cardizem drip. She denied any chest pain or shortness of breath. She has very little insight. Unfortunately, I checked up on the COVID-19 coronavirus swab. It was sent out last night. We do not have any results today. Conversely, the echocardiogram ordered is pending until the patient is proven COVID-19 negative. OBJECTIVE FINDINGS: VITAL SIGNS: Her blood pressure this morning is 120/64 mmHg. Her temperature is 98.0 degrees Fahrenheit. Her oxygen saturations are 95% on room air. HEENT: Head is without trauma. Pupils are reactive. Sclerae nonicteric. Oropharynx clear. NECK: Supple, no bruits. LUNGS: Diffuse wheezing in the upper airways, not as pronounced as yesterday. CARDIOVASCULAR: Showed regular heart tones now. No obvious gallops or murmurs. Peripheral pulses are palpable and full. ABDOMEN: Soft, scaphoid, nontender, no organomegaly. Bowel sounds are normoactive. EXTREMITIES: Show no cyanosis or edema. NEUROLOGIC FINDINGS: Focally intact. No focal deficit. Her speech is fluent; however, she remains confused. She is not ambulatory at this time. Followup chest x-ray has been ordered for later today. Echocardiogram ordered 3 days ago is pending the results of her COVID-19 swab. ASSESSMENT: 1. An 83-year-old female with atrial fibrillation with rapid ventricular rate, now converted with increased doses of Cardizem. 2. Essential hypertension, normotensive. 3. Chronic obstructive pulmonary disease, longstanding. 4. Clinical evidence of congestive heart failure on admission. 5. Profound dementia. PLAN: 1. We will continue her scheduled dose of steroids. She is scheduled at 40 mg of Solu-Medrol today. 2. Continue Cardizem orally 240 mg p.o. daily. 3. Norvasc has been stopped. 4. We will await the results of the echocardiogram. Her last echo was dated 2015 and a lot of things can change in the meantime. 5. Diet as tolerated. 6. Followup chest x-ray ordered later today. 7. She remains a DNR per advanced directive. 8. She will probably be here over the weekend in managing her cardiac and pulmonary issues. 9. Records per Cardiology consultation. They are also waiting for the results of the echocardiogram. TONYA TAO MD DR: JOAQUINA/antelmo JOB#: [id number] / [id number]
--- NOTE | 2019-07-07 09:10 | RAD ---
Portable chest x-ray compared to similar examination dated 07/06/2019 for congestive heart failure. FINDINGS: Exam is significantly rotated. Central vascular congestion is and alveolar pulmonary edema is slightly improved. Streaky atelectasis or infiltrate in the right lung base is slightly more conspicuous. No large pleural effusions. Extensive osteopenia. Deformity of the right humeral head. Mild cardiomegaly, stable. IMPRESSION: 1. Cardiomegaly and central vascular congestion, slightly improved. 2. Probable linear band of atelectasis in the right lung base, augmented by patient rotation. Early infiltrate could have a similar appearance. 3. Severe osteopenia. Electronically signed by: Abraham Godfrey MD (07/07/2019 9:07 AM) [id number]
[2019-07-07 11:27] LABS: CALCIUM 8.6 mg/dL (8.5-10.1); CREATININE 1.2 mg/dL (0.6-1.0); GFR 43.1; MAGNESIUM 1.8 mg/dL (1.8-2.4); POTASSIUM 4.1 mmol/L (3.5-5.1)
[2019-07-07] MEDS ORDERED: FUROSEMIDE 40 MG TABLET PO ONE (11:45)
[2019-07-07] MEDS ORDERED: FUROSEMIDE 40 MG/4 ML VIAL IVP ONE (12:00)
--- NOTE | 2019-07-07 12:00 | NUR ---
Notified Dr. Penny in regards to patients chest xray and if he would like any further management, states to contact cardiology for treatment. Nurse spoke with Dr Viera in regards to chest x ray and patients condition, patients vitals remain stable but appears to have difficulty breathing and remains tachypnic. States she feels better than yesterday. Orders for BMP and if creatinine is unchanged, given Lasix 40mg IVP. Nurse spoke with infection control, still awaiting for COVID results. Patient will remain in isolation at this time.
--- NOTE | 2019-07-07 17:55 | NUR ---
Patient back to bed, sat up in chair for around 2 hours and did well. Required minimal assistance to get from bed to chair. Tobin cath remains in placed for accurate I&Os. Awaiting for COVID results and for cardiology to see patient today.
[2019-07-08] VITALS (9 sets, daily range): BP systolic 113–145; BP diastolic 42–88
[2019-07-08] MEDS: rOPINIRole 0.5 MG TABLET. PO SCH (07:59)
[2019-07-08] MEDS: ALBUTEROL SULFATE 8GM INHALER. INH PRN (07:59)
[2019-07-08] MEDS: CARBIDOPA/LEVODOPA 25/100MG TABLET PO SCH (07:59)
[2019-07-08] MEDS: CITALOPRAM 20 MG TABLET. PO SCH (07:59)
[2019-07-08] MEDS: ASPIRIN ENTERIC COATED 81 MG TABLET.DR. PO SCH (07:59)
[2019-07-08 13:32] LABS: BASO % 0 % (0-3); EOS % 0 % (0-3); HEMOGLOBIN 11.8 g/dL (12.0-15.5); LYMPH # 0.4 x10^3/uL (1.0-4.8); LYMPH % 2 % (24-48); MEAN CORPUSCULAR HEMOGLOBIN 30 pg (25-35); MEAN CORPUSCULAR HGB CONC 33 g/dL (31-37); MEAN CORPUSCULAR VOLUME 93 fL (79-100); MONO # 0.7 x10^3/uL (0.0-1.1); MONO % 4 % (0-9); NEUT # 15.7 x10^3uL (1.8-7.7); NEUT % 93 % (31-73); PLATELET COUNT 230 x10^3/uL (140-400); RED BLOOD COUNT 3.87 x10^6/uL (3.50-5.40); RED CELL DISTRIBUTION WIDTH 15.1 % (11.5-14.5); WHITE BLOOD COUNT 16.8 x10^3/uL (4.0-11.0)
[2019-07-08 13:35] LABS: CALCIUM 8.7 mg/dL (8.5-10.1); CREATININE 1.4 mg/dL (0.6-1.0); GFR 36.1; POTASSIUM 4.3 mmol/L (3.5-5.1)
[2019-07-08 14:21] LABS: % LYMPHS 4 % (24-48); % MONOS 2 % (0-10); % SEGS 94 % (35-66)
[2019-07-08 14:22] LABS: PLT ESTIMATE ADEQUATE (ADEQUATE)
[2019-07-08] MEDS ORDERED: ACETAMINOPHEN 325 MG TABLET PO ONE (14:22)
[2019-07-08] MEDS ORDERED: ACETAMINOPHEN 325 MG TABLET PO PRN (14:30)
--- NOTE | 2019-07-08 14:47 | NUR ---
Pt much improved since I admitted her on wed. However, pt still dyspnic at rest, O2 sat of 94% via pulse ox. PT reports this is not her normal breathing and that she is still struggling to breath. PT reports that she is sweating and hot, wanting to get up to chair. Pt temp 101.1F. Pt given tylenol for comfort, will continue to monitor. Pt Covid screen came back today as negative. Pt is [place], and forgetful at times. Will continue to monitor. Lynn FERNANDES
[2019-07-08] MEDS: methylPREDNISolone SOD SUCC PF 40 MG/ML VIAL. IV SCH ×2 (16:15→20:57)
[2019-07-08] MEDS: FLUTICASONE/VILANTEROL 100/25 INHALER. INH SCH (16:16)
--- NOTE | 2019-07-08 18:23 | PN ---
DATE: 07/08/2019 ATTENDING PHYSICIAN: Dr. Tao. SUBJECTIVE: Doing better. She is breathing better, not as dyspneic, wheezing has improved. Heart rates improved. She is eating all her breakfast. OBJECTIVE FINDINGS: VITAL SIGNS: Her blood pressure today is 131/69, pulse is 60 and regular sinus rhythm, temperature 98.1 degrees Fahrenheit, oxygen saturation 97% on room air. HEENT: Head is without trauma. Pupils are reactive. Sclerae nonicteric. Oropharynx clear. NECK: Supple, no bruits. LUNGS: Entirely clear. She has faint wheezing, the upper airways were much improved. CARDIOVASCULAR: Showed regular heart tones. No gallops. ABDOMEN: Soft. EXTREMITIES: Without edema. NEUROLOGIC: Focally intact. Speech is fluent, little more alert today, but still confused. LABORATORY DATA: Finally her COVID-19 swab was negative for coronavirus. ASSESSMENT: 1. An 83-year-old female with atrial fibrillation, rapid ventricular rate, now converted. 2. Essential hypertension, currently normotensive. 3. Chronic obstructive pulmonary disease, longstanding. 4. Evidence of congestive heart failure with a large right-sided component diuresed. 5. Profound dementia. 6. Negative COVID-19 swab for coronavirus. PLAN: 1. Continue current steroid dose. 2. She would benefit with a long-acting bronchodilator, but whether or not she is able to manage it remains to be seen. 3. Cardizem recommended for control of ventricular rate. 4. We will try to get her echocardiogram done. I think it is important to manage her heart failure. Whether or not this can accomplished on the weekend remains to be seen. 5. Records per Cardiology. 6. She can have her Tobin discontinued. 7. We can discontinue COVID precautions with a negative swab. TONYA TAO MD DR: JOAQUINA/antelmo JOB#: [id number] / [id number]
[2019-07-09 00:19] VITALS: BP 143/77
[2019-07-09 06:06] VITALS: BP 166/50
[2019-07-09] MEDS: LACTOBACILLUS RHAMNOSUS GG 1 CAPSULE. PO SCH ×2 (08:15→20:28)
[2019-07-09] MEDS: methylPREDNISolone SOD SUCC PF 40 MG/ML VIAL. IV SCH ×2 (08:15→20:28)
[2019-07-09] MEDS: CITALOPRAM 20 MG TABLET. PO SCH (08:16)
[2019-07-09] MEDS: FLUTICASONE/VILANTEROL 100/25 INHALER. INH SCH (08:16)
[2019-07-09] MEDS: rOPINIRole 0.5 MG TABLET. PO SCH (08:16)
[2019-07-09] MEDS: ASPIRIN ENTERIC COATED 81 MG TABLET.DR. PO SCH (08:16)
[2019-07-09] MEDS: CARBIDOPA/LEVODOPA 25/100MG TABLET PO SCH (08:16)
[2019-07-09 11:00] VITALS: BP 158/64
[2019-07-09 16:00] VITALS: BP 132/71
--- NOTE | 2019-07-09 16:10 | PN ---
DATE: 07/09/2019 ATTENDING PHYSICIAN: Tonya Tao M.D. CHIEF COMPLAINT: Shortness of breath. SUBJECTIVE: She is better. She is calm. The wheezing is resolved. She is up to her chair. She ate breakfast. She has adequate saturations on room air. Heart rate is controlled. OBJECTIVE FINDINGS: VITAL SIGNS: Her temperature today is 97.9 degrees Fahrenheit, blood pressure is 143/77, pulse is 60 and regular, her oxygen saturations are 96% on room air. HEENT: Head is without trauma. The pupils are reactive. The sclerae are nonicteric. Oropharynx is clear. NECK: Supple. There is no stridor or bruits. LUNGS: Otherwise clear with excellent breath sounds. There is no wheezing. CARDIOVASCULAR: Showed regular heart tones. No gallops, no murmurs. Peripheral pulses palpable and full. ABDOMEN: Soft, scaphoid, nontender. No organomegaly. Bowel sounds were hypoactive. EXTREMITIES: Showed no cyanosis or edema. NEUROLOGIC: Focally intact. Speech is fluent. She is pleasantly confused. ASSESSMENT: 1. An 83-year-old female with atrial fibrillation, rapid ventricular rate, converted with current regimen. 2. Essential hypertension. 3. Chronic obstructive pulmonary disease, longstanding. 4. History of congestive heart failure with compensation. 5. Profound dementia. 6. Negative COVID-19 swab for coronavirus. PLAN: 1. We should cut back her steroid dose. 2. Continue bronchodilator therapy. 3. Continue Cardizem p.o. 4. Physical therapy consultation to assess function. 5. Records per Cardiology. 6. Discharge planning for tomorrow. TONYA TAO MD DR: JOAQUINA/antelmo JOB#: [id number] / [id number]
--- NOTE | 2019-07-09 18:34 | NUR ---
PT feeling better today. Pt still dyspnic with any activity. Daughter reports this a major concern for he because her mother is very active at home and with any exertion she is SOB. PT has a 6 min walk ordered to assess is she needs oxygen at home. PT is now on a LABA/ICS (BREO) to help with some COPD long term acute care registered nurse control and a BRITNEY (Albuterol) for rescue. We also gave her spacer. PT is forgetful and partially able to verbalize understanding of poc. Lynn FERNANDES
[2019-07-10 00:25] VITALS: BP 159/74
[2019-07-10 06:43] VITALS: BP 151/58
--- NOTE | 2019-07-10 07:48 | PDOC ---
CARDIO Progress Notes Date & Time Date of Service DATE: 07/10/19 TIME: 07:45 Time of Evaluation 07:45 Subjective Notes No chest pain, palpitations. SOA improved. No wheezing Vitals Vitals Vital Signs Date Time Temp Pulse Resp B/P (MAP) Pulse Ox O2 Delivery O2 Flow Rate FiO2 07/10/19 06:43 97.0 53 15 151/58 (89) 97 Room Air 07/09/19 00:19 2.0 Weight Weight [ ] Input and Output I.O. Intake and Output 07/10/19 07:00 Intake Total 770 ml Balance 770 ml Intake Oral 720 ml IV Total 50 ml # Voids 2 Laboratory Labs Laboratory Tests Test 07/08/19 13:19 White Blood Count 16.8 x10^3/uL (4.0-11.0) Red Blood Count 3.87 x10^6/uL (3.50-5.40) Hemoglobin 11.8 g/dL (12.0-15.5) Hematocrit 36.0 % (36.0-47.0) Mean Corpuscular Volume 93 fL (79-100) Mean Corpuscular Hemoglobin 30 pg (25-35) Mean Corpuscular Hemoglobin Concent 33 g/dL (31-37) Red Cell Distribution Width 15.1 % (11.5-14.5) Platelet Count 230 x10^3/uL (140-400) Neutrophils (%) (Auto) 93 % (31-73) Lymphocytes (%) (Auto) 2 % (24-48) Monocytes (%) (Auto) 4 % (0-9) Eosinophils (%) (Auto) 0 % (0-3) Basophils (%) (Auto) 0 % (0-3) Neutrophils # (Auto) 15.7 x10^3uL (1.8-7.7) Lymphocytes # (Auto) 0.4 x10^3/uL (1.0-4.8) Monocytes # (Auto) 0.7 x10^3/uL (0.0-1.1) Eosinophils # (Auto) 0.0 x10^3/uL (0.0-0.7) Basophils # (Auto) 0.0 x10^3/uL (0.0-0.2) Segmented Neutrophils % 94 % (35-66) Lymphocytes % 4 % (24-48) Monocytes % 2 % (0-10) Platelet Estimate Adequate (ADEQUATE) Sodium Level 133 mmol/L (136-145) Potassium Level 4.3 mmol/L (3.5-5.1) Chloride Level 97 mmol/L (98-107) Carbon Dioxide Level 25 mmol/L (21-32) Anion Gap 11 (6-14) Blood Urea Nitrogen 50 mg/dL (7-20) Creatinine 1.4 mg/dL (0.6-1.0) Estimated GFR (Cockcroft-Gault) 36.1 Glucose Level 274 mg/dL (70-99) Calcium Level 8.7 mg/dL (8.5-10.1) QU-Bsn-W-Type Natriuretic Peptide 1244 pg/mL (0-449) Microbiology Micro Microbiology 07/05/19 Blood Culture - Preliminary, Resulted NO GROWTH AFTER 4 DAYS... Physical Exams HEENT: Neck Supple W Full Motion Chest: Symmetric Lungs: Other (diminished bases) Heart: RRR Abdomen: Soft N/T Extremities: No Edema Neurology: alert, follow commands, confused Assessment Assessment 1. Acute on chronic respiratory failure with AECOPD, acute CHF 2. AFIB with RVR; now SR. SB noted overnight, lowest 44. No pauses. Only bradycardic when sleeping. Brief bursts of PAFIB noted, otherwise maintaining SR 3. Acute on chronic probable diastolic CHF; appears compensated 4. Hypertension; controlled 5. Hyperlipidemia 6. EDITH 7. Dementia 8. Hypothyroidism; TSH 0.02. As per IM Recommendations Continue Cardizem for rate control Echo to assess LV systolic function, can scheduled this as an outpatient is not able to complete prior to DC Probable poor candidate for OAC given high fall risk Continue ASA therapy. Supportive care KATHY EDWARDS APRN July 10, 2019 07:48
[2019-07-10] MEDS: methylPREDNISolone SOD SUCC PF 40 MG/ML VIAL. IV SCH (08:23)
[2019-07-10] MEDS: LACTOBACILLUS RHAMNOSUS GG 1 CAPSULE. PO SCH (08:24)
[2019-07-10] MEDS: rOPINIRole 0.5 MG TABLET. PO SCH (08:24)
[2019-07-10] MEDS: CARBIDOPA/LEVODOPA 25/100MG TABLET PO SCH (08:24)
[2019-07-10] MEDS: CITALOPRAM 20 MG TABLET. PO SCH (08:24)
[2019-07-10] MEDS: ASPIRIN ENTERIC COATED 81 MG TABLET.DR. PO SCH (08:24)
[2019-07-10] MEDS: FLUTICASONE/VILANTEROL 100/25 INHALER. INH SCH (08:25)
--- NOTE | 2019-07-10 10:23 | NUR ---
Six Minute Walk: At rest: pt was 96% saturation Upon exertion pt O2 was 88% Pt require 2 L O2 nasal cannula to maintain O2 levels >90% during exertion. Pt recovered to 95% upon rest.
[2019-07-10] MEDS ORDERED: DILT240C32 PO (11:24)
--- NOTE | 2019-07-10 12:06 | DS ---
DATE OF DISCHARGE: 07/10/2019 ATTENDING PHYSICIAN: Tonya Tao MD FINAL DISCHARGE DIAGNOSES: 1. Atrial fibrillation with rapid ventricular rate, controlled. 2. Acute on chronic respiratory failure, resolved. 3. Chronic obstructive pulmonary disease exacerbation. 4. Component of congestive heart failure, diuresed. 5. Underlying dementia. 6. Essential hypertension. 7. Generalized debilitation. HISTORY AND PHYSICAL: The patient is an 83-year-old female cared for by her daughter. She was admitted with increasing shortness of breath. She had atrial fibrillation with rapid ventricular rate. She also had pleural effusions on chest x-ray as well as exacerbation of chronic obstructive pulmonary disease. PHYSICAL EXAMINATION: Please see the dictated note. PERTINENT LABORATORY AND X-RAY STUDIES: On admission, her hemoglobin was 13.2 g/dL with a white count of 9300. Repeated, white count was elevated due to margination of white cells from steroid therapy. Electrolytes within normal range. Potassium held at 4.3 mEq. BUN is 1.2, 1.2 and 1.4 mg/dL respectively on consecutive days. BNP was elevated at 1244. TSH was normal. Transaminases were normal. Imaging studies showed serial x-rays. Followup films showed cardiomegaly, vascular congestion, improved. Linear atelectasis was identified. She had also severe osteopenia. COURSE IN THE HOSPITAL: The patient was admitted to the ICU. We initially had her on a Cardizem drip and switch before switching her to oral long-acting daily Cardizem CD. She converted to sinus rhythm and kept her heart rate between 60 and 80 during the hospitalization. She responded to intermittent doses of nebulizer therapy as well as steroids. In addition, diuretic therapy help unload the heart. Cardiology consultation was on board and their recommendation on the chart. Because of scheduling issues and a COVID-19 testing, she did have a COVID-19 swab, which was reported as negative and that did not come back in time for echocardiogram to do it as inpatient; therefore, because she is so much better, we will arrange this as an outpatient. On the sixth hospital day, the patient had exercise oximetry. She did desaturate slightly down to 88% with exercise. Supplemental oxygen 2 liters has been ordered. Her blood pressure and vital signs were improved and I spoke with Dr. Mcgregor in person. She has a pre-hospice group that will act as home health and go out to see this patient for management to avoid further admissions. I explained to the daughter and the patient that this was like a home health care people that are very attentive. Therefore, on the sixth hospital day, she was sent home with supplemental oxygen because she qualifies on the basis of the abnormal exercise oximetry. She will continue her Cardizem-CD 240 one daily, Combivent Respimat 1 puff 4 times a day and we did try to get a hold of the spacer for her and finally prednisone 40 mg daily for 5 more days and stop altogether. She is a DNR per advanced directives. Her prognosis is fair. The patient was then discharged from our hospital in stable condition with explicit drug and followup care. TOTAL DISCHARGE TIME SPENT: 42 minutes. TONYA TAO MD DR: JOAQUINA/antelmo JOB#: [id number] / [id number] HERRERA Ferguson MD
[2019-07-10 12:15] VITALS: BP 147/78
--- NOTE | 2019-07-10 16:28 | NUR ---
Pt discharged home with daughter. Pt wheelchair and O2 off of unit. VSS. NAD. Pt home with home health and O2. Discharge instructions and follow up information discussed with pt and daughter. Educated daughter on O2 use/safety. Questions answered. PIV removed without complication. All belongings accounted for. No falls or injury reported.
== END 2019-07-10 16:31 | disposition home health service (06) | DRG 291 ==
LOC: ER 11:45 → ICU 13:00
PROVIDERS: ADMIT Hospitalist; ATTEND Hospitalist
DX: I11.0 Hypertensive heart disease with heart failure (principal); J96.20 Acute and chronic respiratory failure, unspecified whether with hypoxia or hypercapnia; J44.1 Chronic obstructive pulmonary disease with (acute) exacerbation; N17.9 Acute kidney failure, unspecified; I50.33 Acute on chronic diastolic (congestive) heart failure; I48.0 Paroxysmal atrial fibrillation; E03.9 Hypothyroidism, unspecified; E11.9 Type 2 diabetes mellitus without complications; E78.5 Hyperlipidemia, unspecified; F03.90 Unspecified dementia, unspecified severity, without behavioral disturbance, psychotic disturbance, mood disturbance, and anxiety; Z66 Do not resuscitate; Z79.899 Other long term (current) drug therapy; Z82.3 Family history of stroke; Z87.891 Personal history of nicotine dependence; F32.9 Major depressive disorder, single episode, unspecified; Z20.828 Contact with and (suspected) exposure to other viral communicable diseases; Z88.2 Allergy status to sulfonamides
CPT/HCPCS: 36415; 71045; 80048; 80053; 80061; 81001; 82803; 83605; 83735; 83880; 84443; 84484; 85007; 85025; 85379; 85610; 85730; 87040; 87635; 93005; 94618; 94640; 96374; 96375; 96376; J0696; J1940; J2920; J2930; J3490; J7613; 99291-25; J7030

== ENCOUNTER 2021-02-15 18:06 | Emergency (ER) | payer MEDICARE, OTHER ==
[~2021-02-15] VITALS: Ht 152.4 cm; Wt 68.1 kg
[~2021-02-15 18:06] MED LIST changes: +AMLO-186 PO; +AMLO-187 PO; -AMLO10TA8 PO; -AMLO5TAB10 PO; -CALC600T4 PO; +CALC600T60 PO; +CARB1TAB44 PO; +DILT240C32 PO; +LISI10TA16 PO; -LISI10TA2 PO; +MIRT-37 PO; -MIRT15TA PO; +POTA-121 PO; -POTA20TA4 PO
[2021-02-15] MEDS ORDERED: ACETAMINOPHEN 500 MG TABLET PO ONE (18:30)
--- NOTE | 2021-02-15 18:42 | PHYS DOC ---
Past History Past Medical History: COPD, Dementia, Hypertension Additional Past Medical Histor: Parkinson's (GENNY LARSEN) Past Surgical History: , Hip Replacement (GENNY LARSEN) Smoking: Non-smoker Alcohol Use: None Drug Use: None (GENNY LARSEN) General Adult EDM: Chief Complaint: MECHANICAL FALL HPI: HPI: Patient is an 85 year old female with history of Parkinson's dementia who presents status post a fall from home with left wrist and right knee pain. Patient's daughter is at bedside and provides history, as patient speech at baseline is mostly unintelligible. Daughter states that the patient falls f airly frequently. On , she fell onto her right knee. It is now swollen and ecchymotic. This evening, she fell onto her outstretched left hand with complaint of wrist swelling. Patient's daughter does not believe the patient hit her head or loss consciousness. Daughter has not noticed any emesis or a change in patient's mentation/cognitive status. They have no other complaints at this time. (GENNY LARSEN) Review of Systems: Review of Systems: Unable to obtain secondary to patient's baseline mental status. (GENNY LARSEN) Allergies: Allergies: Allergies Coded Allergies Type Severity Reaction Last Updated Verified Sulfa (Sulfonamide Antibiotics) Allergy Intermediate 07/05/19 Yes (GENNY LARSEN) Physical Exam: PE: Constitutional: Well developed, well nourished, no acute distress, non-toxic appearance. HENT: Normocephalic, atraumatic, bilateral external ears without deformity or discharge, oropharynx moist, no oral exudates, nose without deformity or discharge. Eyes: PERRLA, EOMI, conjunctiva normal, no discharge. Neck: Normal range of motion, no step-off, no tenderness. Cardiovascular: Heart rate regular rhythm, no murmur. Lungs & Thorax: Bilateral breath sounds clear to auscultation. Skin: Warm, dry, no erythema, no rash, no abrasion, no laceration. Back: No step-off, no tenderness, no CVA tenderness. Extremities: [] (GENNY LARSEN) Current Patient Data: Vital Signs: Vital Signs Date Time Temp Pulse Resp B/P (MAP) Pulse Ox O2 Delivery O2 Flow Rate FiO2 02/15/21 18:24 98.2 61 16 119/52 (13) 93 Nasal Cannula (GENNY LARSEN) Radiology/Procedures: Radiology/Procedures: PROCEDURE: CT HEAD AND CERVICAL SPINE WO CT Head W/O Contrast: History: Reason: Fall, headache and neck pain. Hx: Dementia, loss of eyesight / Spl. Instructions: / History: Comparison: none Axial images were obtained without contrast. There is marked diffuse atrophy. There is no mass effect, extraaxial fluid collections or hydrocephalus. There is no gross bleed. Marked diffuse periventricular and subcortical white matter hypoattenuation is seen. There is no focal loss of vail-white matter distinction to suggest acute ischemia, i.e. stroke. Impression: Marked atrophy and chronic white matter changes. No acute findings. Impression CT C-Spine without contrast: Clinical History: Reason: Fall, headache and neck pain. Hx: Dementia, loss of eyesight / Spl. Instructions: / History: Technique: Axial helical images of the cervical spine were obtained without contrast, axial coronal and sagittal reconstruction was performed. Findings: There is no loss of vertebral body stature. There is no prevertebral soft tissue swelling. The cervical vertebral bodies are well aligned. The C1-C2 re lationship is normal. The visualized osseous structures appear normal. Evaluation of the central canal is limited without contrast. There is multiple posterior disc bulges resulting in flattening of the thecal sac. There does not appear to be gross flattening of the cervical cord. There is moderate narrowing of multiple neuroforamen. There is T3-T7 vertebral compression fractures. Impression: Old thoracic vertebral compression fractures. No acute findings. Clinical correlation suggested. PQRS Compliance Statement: One or more of the following individualized dose reduction techniques were utilized for this examination: 1. Automated exposure control 2. Adjustment of the mA and/or kV according to patient size 3. Use of iterative reconstruction technique Electronically signed by: Finn Lundy III, MD (02/15/2021 7:54 PM) [facility] (GENNY LARSEN) Heart Score: C/O Chest Pain: No (GENNY LARSEN) Course & Med Decision Making: Course & Med Decision Making Pertinent Labs and Imaging studies reviewed. (See chart for details) Patient is a pleasantly demented 85-year-old female who presents status post fall from standing at home. Work-up today will include head and C-spine CT plain as well as plain films of the left wrist and right knee. Plain films show a comminuted fracture of the distal radius. There is also discontinuity to the distal ulna. Dr. Rodriguez reviewed plain films in the department prior to radiologist read. Patient be placed in a sugar tong splint with an arm sling and given contact information for orthopedic follow-up. Family at bedside is aware that they will be contacted if there are any changes to findings in imaging. They understand and are agreeable to discharge plan. All questions were answered. (GENNY LARSEN) Dragon Disclaimer: Dragon Disclaimer: This electronic medical record was generated, in whole or in part, using a voice recognition dictation system. (GENNY LARSEN) Departure Departure: Impression: Primary Impression: Closed fracture of left wrist Qualified Codes: S62.102A - Fracture of unspecified carpal bone, left wrist, initial encounter for closed fracture Additional Impressions: Parkinson's disease dementia Qualified Codes: G20 - Parkinson's disease; F02.80 - Dementia in other diseases classified elsewhere without behavioral disturbance Falls frequently Disposition: HOME / SELF CARE / HOMELESS Condition: STABLE Referrals: CHON MOORE MD (PCP) BENSON MATUTE Jr. DO Patient Instructions: Splint Care, [id number], Wrist Fracture, [id number] Additional Instructions: Fracture was seen in the left wrist on x-ray films today. On Wednesday morning, you should call orthopedics group to set up an appointment for further evaluation and management of the fracture. For pain control, you may use Tylenol. If this is not sufficient, tramadol was prescribed. Please return to the emergency department for any new symptoms, pain that is uncontrolled at home or signs of compartment syndrome (cool/pale skin, lack of pulses, pipm-wvr-rtwfrde sensation). Scripts Tramadol Hcl (TRAMADOL HCL) 50 Mg Tablet 50 MG PO PRN Q6HRS PRN for PAIN, #20 TAB Prov: GENNY LARSEN 02/15/21 Draglinda Disclaimer This chart was dictated in whole or in part using Voice Recognition software in a busy, high-work load, and often noisy Emergency Department environment. It may contain unintended and wholly unrecognized errors or omissions. (REGI RODRIGUEZ MD) Attending Signature Attending Signature I have participated in the care of this patient and I have reviewed and agree with all pertinent clinical information above including history, exam, and recommendations. (REGI RODRIGUEZ MD) GENNY LARSEN Feb 15, 2021 18:42 REGI RODRIGUEZ MD Feb 17, 2021 10:29
--- NOTE | 2021-02-15 19:57 | RAD ---
CT Head W/O Contrast: History: Reason: Fall, headache and neck pain. Hx: Dementia, loss of eyesight / Spl. Instructions: / History: Comparison: none Axial images were obtained without contrast. There is marked diffuse atrophy. There is no mass effect, extraaxial fluid collections or hydrocepha dario. There is no gross bleed. Marked diffuse periventricular and subcortical white matter hypoattenu ation is seen. There is no focal loss of vail-white matter distinction to suggest acute ischemia, i. e. stroke. Impression: Marked atrophy and chronic white matter changes. No acute findings. Impression CT C-Spine without contrast: Clinical History: Reason: Fall, headache and neck pain. Hx: Dementia, loss of eyesight / Spl. Instruc tions: / History: Technique: Axial helical images of the cervical spine were obtained without contrast, axial coronal and sagittal reconstruction was performed. Findings: There is no loss of vertebral body stature. There is no prevertebral soft tissue swelling. The cerv ical vertebral bodies are well aligned. The C1-C2 relationship is normal. The visualized osseous str uctures appear normal. Evaluation of the central canal is limited without contrast. There is multiple posterior disc bulges resulting in flattening of the thecal sac. There does not appear to be gross f lattening of the cervical cord. There is moderate narrowing of multiple neuroforamen. There is T3-T7 vertebral compression fractures. Impression: Old thoracic vertebral compression fractures. No acute findings. Clinical correlation suggested. PQRS Compliance Statement: One or more of the following individualized dose reduction techniques were utilized for this examinat ion: 1. Automated exposure control 2. Adjustment of the mA and/or kV according to patient size 3. Use of iterative reconstruction technique Electronically signed by: Finn Lundy III, MD (02/15/2021 7:54 PM) [facility]
[2021-02-15 20:23] VITALS: BP 120/60
[2021-02-15] MEDS ORDERED: TRAM50TA PO (20:41)
--- NOTE | 2021-02-15 22:12 | RAD ---
3 view right knee and three-view left wrist HISTORY: Pain and swelling Three-view right knee: AP lateral oblique views There is gross osteopenia which limits sensitivity. The lungs base fracture. There is an intramedulla ry stevan within the femur. There is no interruption of cortex suggests a fracture. IMPRESSION: No acute findings. End of impression 3 view left wrist: AP lateral and oblique views There is a transverse fracture of the distal left radius with mild posterior displacement and angulat ion. The remainder visualized osseous structures appear normal. IMPRESSION: Acute traumatic fracture of the distal left radius. Electronically signed by: Finn Lundy III, MD (02/15/2021 10:10 PM) [facility]
== END 2021-02-15 21:05 | disposition home or self-care (01) ==
LOC: ER 18:06
DX: S52.502A Unspecified fracture of the lower end of left radius, initial encounter for closed fracture (principal); G20 Parkinson's disease; F02.80 Dementia in other diseases classified elsewhere, unspecified severity, without behavioral disturbance, psychotic disturbance, mood disturbance, and anxiety; M25.561 Pain in right knee; J44.9 Chronic obstructive pulmonary disease, unspecified; F03.90 Unspecified dementia, unspecified severity, without behavioral disturbance, psychotic disturbance, mood disturbance, and anxiety; I10 Essential (primary) hypertension; Z88.2 Allergy status to sulfonamides; W18.39XA Other fall on same level, initial encounter; Y93.89 Activity, other specified; Y92.89 Other specified places as the place of occurrence of the external cause; Y99.8 Other external cause status
CPT/HCPCS: 29125; 70450; 72125; 73110; 73562; 99284

== ENCOUNTER 2021-02-17 20:27 | Emergency (ER) | payer MEDICARE, OTHER ==
[~2021-02-17] VITALS: Ht 121.9 cm; Wt 61.4 kg
[~2021-02-17 20:27] MED LIST changes: +TRAM50TA PO
--- NOTE | 2021-02-17 22:37 | PHYS DOC ---
Past History Past Medical History: COPD, Dementia, Hypertension Additional Past Medical Histor: Parkinson's Past Surgical History: , Hip Replacement Smoking: Non-smoker Alcohol Use: None Drug Use: None General Adult HPI: HPI: Patient is a 85-year-old female coming in for a problem with her left hand splint. Patient was seen and diagnosed the hand fracture a couple days ago and had the splint placed. History provided by patient's family member states she has severe dementia. Patient not cooperating with a sling or elevating the hand. No new injuries. Review of Systems: Review of Systems: All other systems within normal limits except for as noted in the HPI Allergies: Allergies: Allergies Coded Allergies Type Severity Reaction Last Updated Verified Sulfa (Sulfonamide Antibiotics) Allergy Intermediate 07/05/19 Yes Physical Exam: PE: Constitutional: Well developed, well nourished, no acute distress, non-toxic appearance. [] HENT: Normocephalic, atraumatic, bilateral external ears normal, nose normal. [] Eyes: PERRLA, conjunctiva normal, no discharge. [] Neck: No rigidity, supple, no stridor. [] Cardiovascular: Regular rate and rhythm, brisk cap refill [] Lungs & Thorax: Non labored symmetric respirations, no tachypnea or respiratory distress [] Abdomen: Soft, nondistended. Skin: Warm, dry, no erythema, no rash. [] Back: Unremarkable Extremities: No deformities, range of motion grossly intact, no lower extremity edema. Swelling on dorsum of left hand [] Neurologic: Alert and oriented X 3, no focal deficits noted. [] Psychologic: Affect normal, judgement normal, mood normal. [] EKG: EKG: [] Radiology/Procedures: Radiology/Procedures: [] Heart Score: C/O Chest Pain: No Risk Factors: Risk Factors: DM, Current or recent (<one month) smoker, HTN, HLP, family history of CAD, obesity. Risk Scores: Score 0 - 3: 2.5% MACE over next 6 weeks - Discharge Home Score 4 - 6: 20.3% MACE over next 6 weeks - Admit for Clinical Observation Score 7 - 10: 72.7% MACE over next 6 weeks - Early Invasive Strategies Course & Med Decision Making: Course & Med Decision Making Splint replaced Dragon Disclaimer: Dragon Disclaimer: This electronic medical record was generated, in whole or in part, using a voice recognition dictation system. Departure Departure: Impression: Primary Impression: Hand swelling Disposition: HOME / SELF CARE / HOMELESS Condition: STABLE Referrals: CHON MOORE MD (PCP) Patient Instructions: Cast or Splint Care, Miff-le-Mygl JAGRUTI KURTZ MD Feb 17, 2021 22:37
[2021-02-17 22:42] VITALS: BP 128/84
== END 2021-02-17 22:48 | disposition home or self-care (01) ==
LOC: ER 20:31
DX: R22.32 Localized swelling, mass and lump, left upper limb (principal); J44.9 Chronic obstructive pulmonary disease, unspecified; F03.90 Unspecified dementia, unspecified severity, without behavioral disturbance, psychotic disturbance, mood disturbance, and anxiety; I10 Essential (primary) hypertension; Z88.2 Allergy status to sulfonamides
CPT/HCPCS: 29125; 99283

== ENCOUNTER 2021-04-28 18:44 | Emergency (ER) | payer MEDICARE, OTHER ==
[~2021-04-28] VITALS: Ht 121.9 cm; Wt 61.4 kg
--- NOTE | 2021-04-28 18:48 | PHYS DOC ---
Past History Past Medical History: Anemia, Anxiety, Arthritis, COPD, Dementia, Hypertension, TIA, UTI Additional Past Medical Histor: Parkinson's Past Surgical History: , Hip Replacement Smoking: Non-smoker Alcohol Use: None Drug Use: None General Adult HPI: HPI: "..I hurt.. I hurt ,.. my lt. arm..." Patient is a 85 year old female who lives at home with her daughter presents with above hx with complaints altered mental status left arm and elbow pain. Patient does have contusion and small laceration to left elbow. Patient reportedly not at her baseline mentally according to home health that sees her at 5:00 PM. The patient does have history of dementia,, hypertension, COPD, hyperlipidemia, diabetes, allergies sulfa, A. fib, pulmonary edema, CHF, generalized debilitation, arthritis, weakness, pleural effusions, and urinary tract infections. Patient normally follows with Dr. Mcgregor. And Dr. Moore. Reportedly no recent changes in meds. Has had a recent fall in which he injured her left elbow and arm. Poorly no head injury. Patient on arrival is aware she is in a hospital and her name does not know the current date. Does move extremities on request however lower limb movement is limited and lower limbs are stiff. Review of Systems: Review of Systems: Constitutional: Denies fever or chills Eyes: Denies change in visual acuity HENT: Denies nasal congestion or sore throat Respiratory: Denies cough or shortness of breath Cardiovascular: Denies chest pain or edema GI: Denies abdominal pain, nausea, vomiting, bloody stools or diarrhea : Denies dysuria Musculoskeletal: Denies back pain or joint pain Integument: Denies rash Neurologic: Denies headache, focal weakness or sensory changes Endocrine: Denies polyuria or polydipsia Lymphatic: Denies swollen glands Psychiatric: Denies depression or anxiety Family History: Family History: Noncontributory presentation Current Medications: Current Meds: See nursing for home meds Allergies: Allergies: Allergies Coded Allergies Type Severity Reaction Last Updated Verified Sulfa (Sulfonamide Antibiotics) Allergy Intermediate 07/05/19 Yes Physical Exam: PE: Constitutional: Mild acute distress, chronically ill and appearance. [] HENT: Normocephalic, atraumatic, bilateral external ears normal, oropharynx moist, no oral exudates, nose normal. [] Eyes: PERRLA, EOMI, conjunctiva normal, no discharge. [] Neck: Normal range of motion, no tenderness, supple, no stridor. [] Cardiovascular: Tachycardia heart rate irregular rhythm, PMI to left Lungs & Thorax: Bilateral breath sounds equal apex with scattered wheezes and crackles throughout. Auscultation [] Abdomen: Bowel sounds normal, soft, no tenderness, no masses, no pulsatile masses. [] Skin: Warm, dry, no erythema, no rash. Poor turgor Back: No tenderness, no CVA tenderness. Kyphosis Extremities: Complains of right shoulder and left elbow tenderness, no cyanosis, no clubbing, ROM intact but limited due to pain in left elbow and chronic pain in right shoulder, left elbow edema. Arthritic changes. No cording appreciated. Deformed right shoulder. Contusion left elbow and small abrasion laceration. Neurologic: Alert to name and place,, moves all extremities on request however regarding left elbow and right shoulder, no new focal deficits noted except left elbow. Psychologic: Affect anxious judgement impaired, memory impaired, mood normal. [] EKG: EKG: My interpretation EKG shows a supraventricular rhythm with intraventricular con duction left axis and LVH changes. Does have some irregularity with it but the baseline A. fib. Abnormal EKG. Time of EKG is 1945 hrs. [] Radiology/Procedures: Radiology/Procedures: [place] [address] IMAGING REPORT Signed PATIENT: KATHY HICKSOUNT: [id number] : 1935 LOCATION: ER AGE: 85 SEX: F EXAM STATUS: REG ER ORD. PHYSICIAN: REGI RODRIGUEZ MD REASON: Elev. D-dimer, dyspnea PROCEDURE: CT ANGIOGRAPHY CHEST CTA CHEST History: Dyspnea Technique: CT of the chest was performed with intravenous contrast. PE protocol. Maximum intensity projection coronal and sagittal reconstructions were performed. Exposure: One or more of the following individualized dose reduction techniques were utilized for this examination: 1. Automated exposure control 2. Adjustment of the mA and/or kV according to patient size 3. Use of iterative reconstruction technique. Comparison: None Findings: Chest: Pulmonary by within the right lower lobe involving the right lower lobe interlobar pulmonary artery distal branches. No CT evidence of right heart strain. No aortic aneurysm or dissection. Severe atheromatous plaque throughout the aorta. Coronary artery calcifications. No pathologic lymphadenopathy. Small pericardial effusion. Small left pleural effusion with adjacent atelectasis. No pneumothorax. Mild scattered nodular opacities bilaterally is prominent within the upper lobes, left greater than right. Peripherally calcified left thyroid nodule measures 1.7 x 1.4 cm. Upper abdomen: Right renal cyst measures 2.4 cm. Bones: Chronic right-sided rib fractures. Subacute to chronic appearing left- sided rib fractures involving the second, third, fourth, and fifth ribs. Multiple chronic thoracic and upper lumbar compression fractures. Chronic sternal fracture. Impression: 1. Acute pulmonary emboli within the right lower lobe. 2. Mild multifocal opacities bilaterally, may represent infectious or inflammatory process. Recommend follow-up to ensure resolution. 3. Small left pleural effusion with adjacent atelectasis. 4. Left thyroid nodule. Recommend ultrasound to further evaluate. 5. Subacute to chronic appearing left anterior rib fractures. 6. Small pericardial effusion. FOR INTERNAL CODING PURPOSES Critical result: Findings discussed with REGI RODRIGUEZ MD at 04/28/2021 11:18 PM. RESULT CODE: (C) Electronically signed by: Xander Menard DO (04/28/2021 11:21 PM) [facility] DICTATED AND SIGNED BY: XANDER MENARD DO DATE: 04/28/21 0773 CC: REGI RODRIGUEZ MD; CHON MOORE MD ~[facility] [address] [place] [address] IMAGING REPORT Signed PATIENT: KATHY HICKSCCOUNT: [id number] : 1935 LOCATION: ER AGE: 85 SEX: F EXAM STATUS: REG ER ORD. PHYSICIAN: REGI RODRIGUEZ MD REASON: dyspnea PROCEDURE: PORTABLE CHEST 1V XR CHEST 1V History: Reason: dyspnea / Spl. Instructions: / History: Comparison: July 07, 2019 Findings: Mild multifocal opacities bilaterally. No pleural effusion. No pneumothorax. Enlarged cardiac size. Hyperinflation. Right glenohumeral DJD. Chronic left- sided rib fractures. Impression: 1. Multifocal ill-defined opacities bilaterally, may represent pneumonia or pulmonary edema. Recommend follow-up to ensure resolution. Electronically signed by: Xander Menard DO (04/28/2021 8:05 PM) [facility] DICTATED AND SIGNED BY: XANDER MENARD DO DATE: 04/28/212003 CC: REGI RODRIGUEZ MD; CHON MOORE MD ~[facility] [address] [place] [address] IMAGING REPORT Signed PATIENT: KATHY HICKS ACCOUNT: [id number] : 1935 LOCATION: ER AGE: 85 SEX: F EXAM STATUS: REG ER ORD. PHYSICIAN: REGI RODRIGUEZ MD REASON: weakness Lt. side PROCEDURE: CT HEAD WO CONTRAST CT HEAD/BRAIN WO History: Reason: weakness Lt. side / Spl. Instructions: / History: Comparison: February 15, 2021 Technique: Noncontrast CT imaging was performed of the head. Exposure: One or more of the following individualized dose reduction techniques were utilized for this examination: 1. Automated exposure control 2. Adjustment of the mA and/or kV according to patient size 3. Use of iterative reconstruction technique. Findings: No intracranial hemorrhage. No mass effect. No hydrocephalus. Moderate foci of decreased attenuation within the hemispheric white matter, most often due to chronic microvascular ischemia, unchanged. Intracranial atheromatous calcifications. Mild brain parenchymal volume loss. Imaged orbits are unremarkable. Imaged paranasal sinuses and mastoid air cells are clear. No acute calvarial fracture. Impression: 1. No acute intracranial abnormality. 2. Moderate sequela chronic microvascular ischemia. FOR INTERNAL CODING PURPOSES Critical result: Findings discussed with REGI RODRIGUEZ MD at 04/28/2021 7:06 PM. RESULT CODE: (C) Electronically signed by: Xander Menard DO (04/28/2021 7:08 PM) [facility] DICTATED AND SIGNED BY: XANDER MENARD DO DATE: 04/28/211901 CC: REGI RODRIGUEZ MD; CHON MOORE MD ~[facility] [address] [address] IMAGING REPORT Signed PATIENT: KATHY HICKS: [id number] : 1935 LOCATION: ER AGE: 85 SEX: F EXAM STATUS: REG ER ORD. PHYSICIAN: REGI RODRIGUEZ MD REASON: weakness Lt. side PROCEDURE: CT HEAD WO CONTRAST CT HEAD/BRAIN WO History: Reason: weakness Lt. side / Spl. Instructions: / History: Comparison: February 15, 2021 Technique: Noncontrast CT imaging was performed of the head. Exposure: One or more of the following individualized dose reduction techniques were utilized for this examination: 1. Automated exposure control 2. Adjustment of the mA and/or kV according to patient size 3. Use of iterative reconstruction technique. Findings: No intracranial hemorrhage. No mass effect. No hydrocephalus. Moderate foci of decreased attenuation within the hemispheric white matter, most often due to chronic microvascular ischemia, unchanged. Intracranial atheromatous calcifications. Mild brain parenchymal volume loss. Imaged orbits are unremarkable. Imaged paranasal sinuses and mastoid air cells are clear. No acute calvarial fracture. Impression: 1. No acute intracranial abnormality. 2. Moderate sequela chronic microvascular ischemia. FOR INTERNAL CODING PURPOSES Critical result: Findings discussed with REGI RODRIGUEZ MD at 04/28/2021 7:06 PM. RESULT CODE: (C) Electronically signed by: Xander Menard DO (04/28/2021 7:08 PM) [facility] DICTATED AND SIGNED BY: XANDER MENARD DO DATE: 04/28/211901 CC: REGI RODRIGUEZ MD; CHON MOORE MD ~[facility] [address] [place] [address] IMAGING REPORT Signed PATIENT: KATHY HICKS: [id number] : 1935 LOCATION: ER AGE: 85 SEX: F EXAM STATUS: REG ER ORD. PHYSICIAN: REIG RODRIGUEZ MD REASON: elbow PROCEDURE: ELBOW LEFT 3V EXAM: 3 views of the left elbow DATE: 04/28/2021 7:10 PM INDICATION: Reason: elbow pain/ Spl. Instructions: / History: COMPARISON: No Prior FINDINGS: No elbow joint effusion. No acute fracture or dislocation. Soft tissue swelling overlying the olecranon. IMPRESSION: No acute fracture or dislocation. Soft tissue swelling overlying the olecranon. Electronically signed by: Ronny Damian MD (04/28/2021 8:15 PM) [facility] DICTATED AND SIGNED BY: RONNY DAMIAN MD DATE: 04/28/212014 CC: REGI RODRIGUEZ MD; CHON MOORE MD ~[facility] 0 ][place] [address] IMAGING REPORT Signed PATIENT: KATHY HICKSOUNT: [id number] : 1935 LOCATION: ER AGE: 85 SEX: F EXAM STATUS: REG ER ORD. PHYSICIAN: REGI RODRIGUEZ MD REASON: elbow PROCEDURE: HUMERUS LEFT EXAM: AP and lateral views left humerus DATE: 04/28/2021 7:10 PM INDICATION: Reason: elbow / Spl. Instructions: / History: . COMPARISON: No Prior FINDINGS/ IMPRESSION: Severe left shoulder joint osteoarthritis. Decreased bone mineral density. No evidence of acute fracture or dislocation. Electronically signed by: Ronny Damian MD (04/28/2021 8:15 PM) [facility] DICTATED AND SIGNED BY: RONNY DAMIAN MD DATE: 04/28/212013 CC: REGI RODRIGUEZ MD; CHON MOORE MD ~[facility] 0 Heart Score: C/O Chest Pain: No HEART Score for Chest Pain: HEART Score for Chest Pain Response (Comments) Value History Moderately Suspicious 1 ECG Nonspecific Repolarizatio 1 Age > 65 2 Risk Factors 1 or 2 Risk Factors 1 Troponin >3 x Normal Limit 2 Total 7 Risk Factors: Risk Factors: DM, Current or recent (<one month) smoker, HTN, HLP, family history of CAD, obesity. Risk Scores: Score 0 - 3: 2.5% MACE over next 6 weeks - Discharge Home Score 4 - 6: 20.3% MACE over next 6 weeks - Admit for Clinical Observation Score 7 - 10: 72.7% MACE over next 6 weeks - Early Invasive Strategies Course & Med Decision Making: Course & Med Decision Making Pertinent Labs and Imaging studies reviewed. (See chart for details) Discussed options of treatment with family.. Currently requesting [facility]. However if unable to go to [facility] on [address] will go to any hospital in the [facility] system. Family is adamant not to go to [facility] because of previous bad experience. Discussed presentation, testing and treatment plan with Dr. Kamar Rodriguez at [facility] triage center=-advised there is absolutely no beds available at [facility]. He will attempt to find bed availability at other hospitals in the [facility].. We will give 1 dose of Eliquis-keeping in mind risk of fall Impression: 1. Acute on Chronic Mental status change 2. Accelerated hypertension 3. Elevated D-dimer 16.99 4. Falls 5. Anemia 11.5 6. Elevated Alk Phos 140 7. Elevated Trop. 186 8. CHF BNP 2,648 9. Lt Elbow Contusions 10. Dementia 11. Pulmonary Embolism 12. Rib Fractures acute/ chronic 13. DNR-no intubation, no shocks, no no compressions.. May have medications [] Dragon Disclaimer: [facility] Disclaimer: This electronic medical record was generated, in whole or in part, using a voice recognition dictation system. Departure Departure: Referrals: CHON MOORE MD (PCP) Willis Disclaimer This chart was dictated in whole or in part using Voice Recognition software in a busy, high-work load, and often noisy Emergency Department environment. It may contain unintended and wholly unrecognized errors or omissions. REGI RODRIGUEZ MD Apr 28, 2021 18:48
[2021-04-28] MEDS ORDERED: IV RINGERS SOLUTION,LACTATED 1,000 ML IV SCH (19:00)
[2021-04-28] MEDS ORDERED: LABETALOL 20 MG/4 ML DISP.SYRIN. IVP ONE ×3 (19:00→21:45)
--- NOTE | 2021-04-28 19:10 | RAD ---
CT HEAD/BRAIN WO History: Reason: weakness Lt. side / Spl. Instructions: / History: Comparison: February 15, 2021 Technique: Noncontrast CT imaging was performed of the head. Exposure: One or more of the following individualized dose reduction techniques were utilized for thi s examination: 1. Automated exposure control 2. Adjustment of the mA and/or kV according to patient size 3. Use of iterative reconstruction technique. Findings: No intracranial hemorrhage. No mass effect. No hydrocephalus. Moderate foci of decreased attenuation within the hemispheric white matter, most often due to chronic microvascular ischemia, unchanged. Intracranial atheromatous calcifications. Mild brain parenchymal volume loss. Imaged orbits are unremarkable. Imaged paranasal sinuses and mastoid air cells are clear. No acute ca lvarial fracture. Impression: 1. No acute intracranial abnormality. 2. Moderate sequela chronic microvascular ischemia. FOR INTERNAL CODING PURPOSES Critical result: Findings discussed with REGI JORGENSEN MD at 04/28/2021 7:06 PM. RESULT CODE: (C) Electronically signed by: Xander Menard DO (04/28/2021 7:08 PM) [facility]
[2021-04-28 19:15] LABS: BASO % 0 % (0-3); EOS % 0 % (0-3); HEMATOCRIT 34.6 % (36.0-47.0); HEMOGLOBIN 11.5 g/dL (12.0-15.5); LYMPH # 0.8 x10^3/uL (1.0-4.8); LYMPH % 10 % (24-48); MEAN CORPUSCULAR HEMOGLOBIN 33 pg (25-35); MEAN CORPUSCULAR HGB CONC 33 g/dL (31-37); MEAN CORPUSCULAR VOLUME 99 fL (79-100); MONO # 0.4 x10^3/uL (0.0-1.1); MONO % 5 % (0-9); NEUT # 6.4 x10^3uL (1.8-7.7); NEUT % 85 % (31-73); PLATELET COUNT 309 x10^3/uL (140-400); RED CELL DISTRIBUTION WIDTH 14.7 % (11.5-14.5); WHITE BLOOD COUNT 7.6 x10^3/uL (4.0-11.0)
[2021-04-28 19:19] LABS: CALCIUM 9.5 mg/dL (8.5-10.1); CREATININE 0.9 mg/dL (0.6-1.0); GFR 59.8; POTASSIUM 4.3 mmol/L (3.5-5.1)
[2021-04-28 19:32] LABS: ALBUMIN 3.1 g/dL (3.4-5.0); DIRECT BILIRUBIN 0.1 mg/dL (0.0-0.2); MAGNESIUM 1.6 mg/dL (1.8-2.4); TOTAL BILIRUBIN 0.4 mg/dL (0.2-1.0); TOTAL PROTEIN 7.5 g/dL (6.4-8.2)
--- NOTE | 2021-04-28 20:08 | RAD ---
XR CHEST 1V History: Reason: dyspnea / Spl. Instructions: / History: Comparison: July 07, 2019 Findings: Mild multifocal opacities bilaterally. No pleural effusion. No pneumothorax. Enlarged cardiac size. H yperinflation. Right glenohumeral DJD. Chronic left-sided rib fractures. Impression: 1. Multifocal ill-defined opacities bilaterally, may represent pneumonia or pulmonary edema. Recomme nd follow-up to ensure resolution. Electronically signed by: Xander Menard DO (04/28/2021 8:05 PM) [facility]
[2021-04-28 20:13] LABS: BACTERIA,URINE MANY /HPF (0-FEW); BARBITURATES NEG (NEG); BENZODIAZEPINES NEG (NEG); CANNABINOIDS NEG (NEG); CLARITY,URINE HAZY; COCAINE NEG (NEG); COLOR,URINE YELLOW; GLUCOSE,URINE NEG (NEG); METHADONE NEG (NEG); NITRITE,URINE NEG (NEG); OPIATES NEG (NEG); PHENCYCLIDINE NEG (NEG); RBC,URINE 0 /HPF (0-2); SQUAMOUS EPITHELIAL CELL,UR OCC /LPF
[2021-04-28 20:15] LABS: AMPHETAMINE/METHAMPHETAMINE NEG (NEG)
--- NOTE | 2021-04-28 20:17 | RAD ---
EXAM: AP and lateral views left humerus DATE: 04/28/2021 7:10 PM INDICATION: Reason: elbow / Spl. Instructions: / History: . COMPARISON: No Prior FINDINGS/ IMPRESSION: Severe left shoulder joint osteoarthritis. Decreased bone mineral density. No evidence of acute fract ure or dislocation. Electronically signed by: Ronny Caal MD (04/28/2021 8:15 PM) [facility]
--- NOTE | 2021-04-28 20:18 | RAD ---
EXAM: 3 views of the left elbow DATE: 04/28/2021 7:10 PM INDICATION: Reason: elbow pain/ Spl. Instructions: / History: COMPARISON: No Prior FINDINGS: No elbow joint effusion. No acute fracture or dislocation. Soft tissue swelling overlying the olecran on. IMPRESSION: No acute fracture or dislocation. Soft tissue swelling overlying the olecranon. Electronically signed by: Ronny Caal MD (04/28/2021 8:15 PM) [facility]
[2021-04-28] MEDS ORDERED: FUROSEMIDE 40 MG/4 ML VIAL IVP ONE (21:30)
[2021-04-28] MEDS ORDERED: IOHEXOL 350 MG/ML 100 ML VIAL. IV ONE (22:15)
--- NOTE | 2021-04-28 23:24 | RAD ---
CTA CHEST History: Dyspnea Technique: CT of the chest was performed with intravenous contrast. PE protocol. Maximum intensity pr ojection coronal and sagittal reconstructions were performed. Exposure: One or more of the following individualized dose reduction techniques were utilized for thi s examination: 1. Automated exposure control 2. Adjustment of the mA and/or kV according to patient size 3. Use of iterative reconstruction technique. Comparison: None Findings: Chest: Pulmonary by within the right lower lobe involving the right lower lobe interlobar pulmonary a rtery distal branches. No CT evidence of right heart strain. No aortic aneurysm or dissection. Severe atheromatous plaque throughout the aorta. Coronary artery calcifications. No pathologic lymphadenopa thy. Small pericardial effusion. Small left pleural effusion with adjacent atelectasis. No pneumothorax. Mild scattered nodular opacit ies bilaterally is prominent within the upper lobes, left greater than right. Peripherally calcified left thyroid nodule measures 1.7 x 1.4 cm. Upper abdomen: Right renal cyst measures 2.4 cm. Bones: Chronic right-sided rib fractures. Subacute to chronic appearing left-sided rib fractures invo lving the second, third, fourth, and fifth ribs. Multiple chronic thoracic and upper lumbar compressi on fractures. Chronic sternal fracture. Impression: 1. Acute pulmonary emboli within the right lower lobe. 2. Mild multifocal opacities bilaterally, may represent infectious or inflammatory process. Recommen d follow-up to ensure resolution. 3. Small left pleural effusion with adjacent atelectasis. 4. Left thyroid nodule. Recommend ultrasound to further evaluate. 5. Subacute to chronic appearing left anterior rib fractures. 6. Small pericardial effusion. FOR INTERNAL CODING PURPOSES Critical result: Findings discussed with REGI JORGENSEN MD at 04/28/2021 11:18 PM. RESULT CODE: (C) Electronically signed by: Xander Menard DO (04/28/2021 11:21 PM) [facility]
[2021-04-28] MEDS ORDERED: APIXABAN 5 MG TABLET. PO SCH (23:45)
[2021-04-29 01:27] VITALS: BP 146/82
--- NOTE | 2021-04-29 07:29 | EKG ---
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
--- NOTE | 2021-04-29 07:55 | EKG ---
[address] [address] Test Date: 2021-04-28 Test Time: 19:45:34 Pat Name: KATHY HICKS Department: Room: Gender: F [employer]: KLAUS : 1935 Requested By: REGI JORGENSEN Order Number: [id number] Reading MD: Conor Dobson Measurements Intervals [place] Rate: 85 P: 90 ND: 166 QRS: -17 QRSD: 122 T: 109 QT: 374 QTc: 451 Interpretive Statements SINUS RHYTHM COMPLEX(ES) WITH ABERRANT INTRAVENTRICULAR CONDUCTION LEFTWARD AXIS LVH WITH REPOLARIZATION ABNORMALITY ABNORMAL ECG Electronically Signed On 05-01-2021 8:47:25 ENGINE REPA[employer]ER [employer]ODUCTION by Conor Dobson
== END 2021-04-29 01:27 | disposition short-term general hospital (02) ==
LOC: ER 18:44
DX: S51.012A Laceration without foreign body of left elbow, initial encounter (principal); M84.48XA Pathological fracture, other site, initial encounter for fracture; R79.1 Abnormal coagulation profile; R79.89 Other specified abnormal findings of blood chemistry; I26.99 Other pulmonary embolism without acute cor pulmonale; I11.0 Hypertensive heart disease with heart failure; I50.9 Heart failure, unspecified; R77.8 Other specified abnormalities of plasma proteins; D64.9 Anemia, unspecified; R41.82 Altered mental status, unspecified; F03.90 Unspecified dementia, unspecified severity, without behavioral disturbance, psychotic disturbance, mood disturbance, and anxiety; J44.9 Chronic obstructive pulmonary disease, unspecified; E78.5 Hyperlipidemia, unspecified; E11.9 Type 2 diabetes mellitus without complications; I48.91 Unspecified atrial fibrillation; Z20.822 Contact with and (suspected) exposure to COVID-19; Z86.2 Personal history of diseases of the blood and blood-forming organs and certain disorders involving the immune mechanism; Z87.440 Personal history of urinary (tract) infections; Z86.73 Personal history of transient ischemic attack (TIA), and cerebral infarction without residual deficits; Z88.2 Allergy status to sulfonamides; W18.39XA Other fall on same level, initial encounter; Y93.89 Activity, other specified; Y92.89 Other specified places as the place of occurrence of the external cause; Y99.8 Other external cause status
CPT/HCPCS: 36415; 51702; 70450; 71045; 71275; 73060; 73080; 80048; 80076; 80307; 81001; 82550; 83690; 83735; 83880; 84443; 84484; 85025; 85379; 85610; 85730; 87077; 87086; 87186; 87426; 93005; 96361; 96374; 96375; 96376; 99285; C9803; J1940; J3490; J7120; U0003

== ENCOUNTER 2021-07-06 17:56 | Emergency (ER) | payer MEDICARE, OTHER ==
[~2021-07-06] VITALS: Ht 157.5 cm; Wt 51.2 kg
--- NOTE | 2021-07-06 18:24 | PHYS DOC ---
Past History Past Medical History: Anemia, Anxiety, Arthritis, COPD, Dementia, Hypertension, TIA, UTI Additional Past Medical Histor: Parkinson's Past Surgical History: , Hip Replacement Smoking: Non-smoker Alcohol Use: None Drug Use: None General Adult EDM: Chief Complaint: MECHANICAL FALL HPI: HPI: - Pt. knods yes and no to questions- Patient is a 85 year old female who presents with hx of fall and injury to Lt side head at [facility]. Patient probably had gotten up from her wheelchair and fell forward striking the left side of her head. No history of loss of consciousness. Does have a 2 cm laceration and hematoma to the scalp on the left parietal area. Patient reportedly on anticoagulation Lovenox for her A. fib. Patient has been a resident of [facility] since 05/06/2021. Patient has past medical history of acute pulmonary embolisms and DVTs, cerebral infarction, chronic obstructive pulmonary disease, advanced dementia, dysphagia, uterine scarring from previous surgery, hypothyroidism, muscle weakness, deconditioning and fatigue, history of right hip fracture with replacement, history of repeated falls, history of coronary artery disease with [place] coronary arteries. History of angina, history of ischemic heart disease, history of chronic systolic heart failure disoriented, hypertension, hyperlipidemia, major depressive disorder, Parkinson's disease, diseases of the musculoskeletal connective tissue,,,, COPD, atrial fibrillation. UTIs, diabetes, with complications. Patient has an allergy to sulfa drugs. PtLea kasper with Dr. Moore. Review of Systems: Review of Systems: Constitutional: Denies fever or chills Eyes: Denies change in visual acuity HENT: Complains of head injury 2 cm laceration left parietal Respiratory: Denies cough or shortness of breath Cardiovascular: Denies chest pain or edema GI: Denies abdominal pain, nausea, vomiting, bloody stools or diarrhea : Denies dysuria Musculoskeletal: Complaints of fall Integument: Denies rash Neurologic: Denies headache, focal weakness or sensory changes Endocrine: Denies polyuria or polydipsia Lymphatic: Denies swollen glands Psychiatric: History of depression or anxiety Family History: Family History: Not currently available Current Medications: Current Meds: See nursing for home meds Allergies: Allergies: Allergies Coded Allergies Type Severity Reaction Last Updated Verified Sulfa (Sulfonamide Antibiotics) Allergy Intermediate 07/05/19 Yes Physical Exam: PE: Constitutional: , no acute distress, non-toxic appearance. [] HENT: Normocephalic 2 cm laceration left parietal area with hematoma,, bilateral external ears normal, oropharynx moist, no oral exudates, nose normal. [] Eyes: PERRLA, EOMI, conjunctiva normal, no discharge. [] Neck: Normal range of motion, some upper neck tenderness, supple, no stridor. Collar in place. Cardiovascular: Irregular heart rate, irregular regular rhythm, no murmur, PMI to left Lungs & Thorax: Bilateral breath sounds equal apex with scattered wheezes and basilar majano on auscultation [] Abdomen: Bowel sounds decreased, soft, no tenderness, no masses, no pulsatile masses. Old scar. Distended Skin: Warm, dry, no erythema, no rash. Poor turgor Back: No tenderness, no CVA tenderness. Kyphosis and scoliosis Extremities: No tenderness, no cyanosis, no clubbing, ROM intact, no edema. [] Arthritic changes. Some small bruises noted Neurologic: Alert name, moves all extremities but limited range of motion, has distal sensory function, no new focal deficits noted per correction Psychologic: Affect angry, judgement impaired, speech impaired, EKG: EKG: My interpretation EKG shows showsill regular rhythm and irregular rate. Has multiple wandering pacemaker sites. Has findings of anterior septal changes has delayed repolarization. There is some baseline artifact attributed to movement. Abnormal EKG. But no findings of acute STEMI of contralateral changes. Time of EKG is 1910 hrs. Radiology/Procedures: Radiology/Procedures: []SEX: FEXAM ACCESSION#: [id number] STATUS: REG ER ORD. PHYSICIAN: REGI JORGENSEN MD REASON: Head injury- fall, on anti coag PROCEDURE: CT HEAD AND CERVICAL SPINE WO Examination: CT head and cervical spine without contrast CT HEAD INDICATION: Reason: Head injury- fall, on anti coag / Spl. Instructions: / History: COMPARISON: None Available. Exposure: One or more of the following individualized dose reduction techniques were utilized for this examination: 1. Automated exposure control 2. Adjustment of the mA and/or kV according to patient size 3. Use of iterative reconstruction technique TECHNIQUE: 5 mm contiguous axial images were obtained from the skull base to the vertex in both bone and soft tissue algorithm. FINDINGS: No abnormal attenuation within the brain parenchyma. No evidence of acute intracranial hemorrhage. No extra-axial fluid collections. No mass effect or midline shift. Ventricular size is appropriate. Basal cisterns are patent. No fractures identified.Jarquin-white differentiation is preserved.Globes and orbits are within normal limits. Paranasal sinuses and mastoid air cells are clear. CT CERVICAL SPINE INDICATION: Reason: Head injury- fall, on anti coag / Spl. Instructions: / History: COMPARISON: None Available. Technique: 2.5 mm contiguous axial images were obtained from the skull base through the cervicothoracic junction in both bone and soft tissue algorithm. Additional sagittal and coronal reconstructions were also performed. FINDINGS: Vertebral body height and alignment are maintained. Cervical lordosis is preserved. The lateral masses of C1 are aligned upon C2. No fractures identified. The bony canal is patent throughout. Mild intervertebral disc height loss identified in the cervical spine likely degenerative changes. The paraspinous soft tissues are unremarkable. Visualized intracranial contents are unremarkable. Lung apices are clear. IMPRESSION: 1. No acute intracranial findings. 2. No acute fracture cervical spine. Electronically signed by: Jagdish Nunes MD (07/06/2021 9:04 PM) [id number] DICTATED AND SIGNED BY: JAGDISH NUNES MD DATE: 07/06/212057 CC: REGI JORGENSEN MD; CHON MOORE MD ~ Heart Score: C/O Chest Pain: N/A Risk Factors: Risk Factors: DM, Current or recent (<one month) smoker, HTN, HLP, family history of CAD, obesity. Risk Scores: Score 0 - 3: 2.5% MACE over next 6 weeks - Discharge Home Score 4 - 6: 20.3% MACE over next 6 weeks - Admit for Clinical Observation Score 7 - 10: 72.7% MACE over next 6 weeks - Early Invasive Strategies Course & Med Decision Making: Course & Med Decision Making Pertinent Labs and Imaging studies reviewed. (See chart for details) Procedure note-2 cm laceration cleaned with peroxide. Laceration irrigated with normal saline. Injected edge of laceration with 2% lidocaine. Placed 3 evgeny to close laceration with adequate hemostasis. Bacitracin applied. Patient keep area clean and dry evgeny out in 10 days. Polysporin 4 times a day. Monitor for infection. Impression: 1. Fall from standing position-with head injury 2. History of anticoagulation with Lovenox 3. A. fib 4. Advanced dementia 5. History of hypertension currently 150 /90s 6. CHF BNP 1080 [] Willis Disclaimer: Willis Disclaimer: This electronic medical record was generated, in whole or in part, using a voice recognition dictation system. Departure Departure: Referrals: CHON MOORE MD (PCP) Willis Disclaimer This chart was dictated in whole or in part using Voice Recognition software in a busy, high-work load, and often noisy Emergency Department environment. It may contain unintended and wholly unrecognized errors or omissions. REGI JORGENSEN MD July 06, 2021 18:24
[2021-07-06 19:02] LABS: BASO % 1 % (0-3); EOS % 0 % (0-3); HEMATOCRIT 36.9 % (36.0-47.0); LYMPH # 0.9 x10^3/uL (1.0-4.8); LYMPH % 21 % (24-48); MEAN CORPUSCULAR HEMOGLOBIN 33 pg (25-35); MEAN CORPUSCULAR HGB CONC 33 g/dL (31-37); MEAN CORPUSCULAR VOLUME 100 fL (79-100); MONO # 0.4 x10^3/uL (0.0-1.1); MONO % 9 % (0-9); NEUT % 69 % (31-73); PLATELET COUNT 223 x10^3/uL (140-400); RED BLOOD COUNT 3.67 x10^6/uL (3.50-5.40); RED CELL DISTRIBUTION WIDTH 15.8 % (11.5-14.5); WHITE BLOOD COUNT 4.4 x10^3/uL (4.0-11.0)
[2021-07-06 19:10] LABS: CALCIUM 9.6 mg/dL (8.5-10.1); CREATININE 0.7 mg/dL (0.6-1.0); GFR 79.9; POTASSIUM 4.5 mmol/L (3.5-5.1)
[2021-07-06] MEDS ORDERED: BACITRACIN ZINC TOPICAL OINT PACKET. TP ONE (19:15)
[2021-07-06] MEDS ORDERED: DIPHTH,PERTUSS(ACELL),TET TOX 0.5 ML DISP.SYRIN. VAX IM ONE (19:15)
[2021-07-06] MEDS ORDERED: LIDOCAINE 2% 20 ML VIAL. IJ ONE (19:15)
[2021-07-06 19:23] LABS: MAGNESIUM 1.8 mg/dL (1.8-2.4)
[2021-07-06 20:05] LABS: BARBITURATES NEG (NEG); BENZODIAZEPINES NEG (NEG); CANNABINOIDS NEG (NEG); COCAINE NEG (NEG); METHADONE NEG (NEG); OPIATES NEG (NEG); PHENCYCLIDINE NEG (NEG)
[2021-07-06 20:07] LABS: AMPHETAMINE/METHAMPHETAMINE NEG (NEG); BACTERIA,URINE MOD /HPF (0-FEW); CLARITY,URINE CLEAR; COLOR,URINE YELLOW; GLUCOSE,URINE NEG (NEG); NITRITE,URINE NEG (NEG); RBC,URINE OCC /HPF (0-2); SQUAMOUS EPITHELIAL CELL,UR MOD /LPF; WBC,URINE TNTC /HPF (0-4)
[2021-07-06 20:12] VITALS: BP 148/70
[2021-07-06 20:47] LABS: INFLUENZA A PATIENT NEGATIVE (NEGATIVE); INFLUENZA B PATIENT NEGATIVE (NEGATIVE)
--- NOTE | 2021-07-06 21:07 | RAD ---
Examination: CT head and cervical spine without contrast CT HEAD INDICATION: Reason: Head injury- fall, on anti coag / Spl. Instructions: / History: COMPARISON: None Available. Exposure: One or more of the following individualized dose reduction techniques were utilized for thi s examination: 1. Automated exposure control 2. Adjustment of the mA and/or kV according to patient size 3. Use of iterative reconstruction technique TECHNIQUE: 5 mm contiguous axial images were obtained from the skull base to the vertex in both bone and soft tissue algorithm. FINDINGS: No abnormal attenuation within the brain parenchyma. No evidence of acute intracranial hemorrhage. No extra-axial fluid collections. No mass effect or midline shift. Ventricular size is appropriate. Basal cisterns are patent. No fractures identified.Jarquin-white differentiation is preserved.Globes and orbits are within normal l imits. Paranasal sinuses and mastoid air cells are clear. CT CERVICAL SPINE INDICATION: Reason: Head injury- fall, on anti coag / Spl. Instructions: / History: COMPARISON: None Available. Technique: 2.5 mm contiguous axial images were obtained from the skull base through the cervicothorac ic junction in both bone and soft tissue algorithm. Additional sagittal and coronal reconstructions were also performed. FINDINGS: Vertebral body height and alignment are maintained. Cervical lordosis is preserved. The l ateral masses of C1 are aligned upon C2. No fractures identified. The bony canal is patent throughout. Mild intervertebral disc height loss identified in the cervical spine likely degenerative changes. The paraspinous soft tissues are unremarkable. Visualized intracranial contents are unremarkable. L terry apices are clear. IMPRESSION: 1. No acute intracranial findings. 2. No acute fracture cervical spine. Electronically signed by: Jagdish Nunes MD (07/06/2021 9:04 PM) [id number]
--- NOTE | 2021-07-06 21:20 | RAD ---
EXAM: CHEST ONE VIEW. HISTORY: Fall, pain. COMPARISON: 04/28/2021. FINDINGS: A frontal view of the chest is obtained. There are mild interstitial opacities in the bases. There is no pneumothorax or pleural effusion. The heart is not enlarged. A nodular density projecting over the left upper lobe is likely secondary to a chronic healed rib fracture. There are atherosclerotic calcifications of the aorta. IMPRESSION: 1. Basilar atelectasis versus mild pulmonary edema. Electronically signed by: Dawit Boateng MD (07/06/2021 9:17 PM) [facility]
[2021-07-06] MEDS ORDERED: FUROSEMIDE 40 MG/4 ML VIAL IVP ONE (21:30)
== END 2021-07-06 22:37 | disposition home or self-care (01) ==
LOC: ER 17:56
DX: S01.01XA Laceration without foreign body of scalp, initial encounter (principal); F41.9 Anxiety disorder, unspecified; M19.90 Unspecified osteoarthritis, unspecified site; J44.9 Chronic obstructive pulmonary disease, unspecified; F03.90 Unspecified dementia, unspecified severity, without behavioral disturbance, psychotic disturbance, mood disturbance, and anxiety; I10 Essential (primary) hypertension; E03.9 Hypothyroidism, unspecified; I25.10 Atherosclerotic heart disease of native coronary artery without angina pectoris; E78.5 Hyperlipidemia, unspecified; I48.91 Unspecified atrial fibrillation; E11.9 Type 2 diabetes mellitus without complications; Z20.822 Contact with and (suspected) exposure to COVID-19; Z87.440 Personal history of urinary (tract) infections; Z86.2 Personal history of diseases of the blood and blood-forming organs and certain disorders involving the immune mechanism; Z86.73 Personal history of transient ischemic attack (TIA), and cerebral infarction without residual deficits; Z88.2 Allergy status to sulfonamides; W18.09XA Striking against other object with subsequent fall, initial encounter; Y93.89 Activity, other specified; Y92.89 Other specified places as the place of occurrence of the external cause; Y99.8 Other external cause status
CPT/HCPCS: 12001; 36415; 70450; 71045; 72125; 80048; 80307; 81001; 82550; 83735; 83880; 84484; 85025; 85610; 85730; 87077; 87086; 87428; 90471; 90715; 93005; 96374; 99285; J1940; J2001